=== PATIENT | female | born 1960 | race Asian ===

== ENCOUNTER → 2018-09-15 12:05 | Outpatient (CLI) | payer OTHER, SELFPAY ==
[2018-09-15 14:26] LABS: Add Manual Diff / Slide Review NO; Basophils Percent Auto 0.6 % (0-2); Eosinophils Percent Auto 1.6 % (2-4); Hematocrit 40.6 % (36-46); Hemoglobin 13.6 g/dL (12.0-16.0); Mean Corpuscular HGB Conc 33.4 % (30-36); Mean Corpuscular Hemoglobin 29.9 PG (26-34); Mean Corpuscular Volume 89.5 fL (80-100); Monocytes Percent Auto 6.9 % (3-14); Neutrophils Absolute Auto 4400 /uL (3000-5900); Neutrophils Percent Auto 55.9 % (50-75); Platelet Count 210 X10^3/uL (150-400); Red Blood Cell Count 4.54 X10^6/uL (4.0-5.2); Red Cell Distribution Width 14.3 % (11.6-14.8)
[2018-09-15 14:38] LABS: Alanine Aminotransferase 22 IU/L (9-52); Albumin 4.3 g/dL (3.5-5.0); Albumin Globulin Ratio 1.6 (1.0-2.8); Alkaline Phosphatase 42 U/L (38-126); Aspartate Aminotransferase 17 IU/L (14-36); BUN Creatinine Ratio 18.8 (6-22); Bilirubin Total 0.5 mg/dL (0.2-1.3); Blood Urea Nitrogen 15 mg/dL (7-17); Calcium 9.3 mg/dL (8.4-10.2); Carbon Dioxide 31 mmol/L (22-32); Chloride 103 mmol/L (98-107); Cholesterol 307 mg/dL (140-199); Estimated Glomerular Filt Rate > 60.0 mL/min (>60); Globulin 2.7 g/dL (1.7-4.1); Glucose 80 mg/dL (70-100); HDL Cholesterol 71 mg/dL (40-60); HEMOLYSIS < 15 (0-50); LDL Cholesterol Calculated 216 mg/dL (<100); Potassium 3.2 mmol/L (3.4-5.1); Sodium 143 mmol/L (137-145); Triglycerides 100 mg/dL (35-150)
[2018-09-15 16:10] LABS: Thyroid Stimulating Hormone 1.63 uIU/mL (0.47-4.68)
[2018-09-15 16:27] LABS: Hep C Virus Ab w/Reflex Quant NEGATIVE s/c (NEGATIVE)
== END ==
PROVIDERS: PCP Internal Medicine; Visit Provider Internal Medicine
DX: J32.9 Chronic sinusitis, unspecified (principal); M25.50 Pain in unspecified joint; R51 Headache
CPT/HCPCS: 36415; 80053; 80061; 82274; 84443; 85025; 86803

== ENCOUNTER 2021-11-07 12:53 | Emergency (ER) | payer OTHER, SELFPAY ==
[2021-11-07 12:54] VITALS: BP 132/72; PULSE 106; RESP 15; TEMP 36.1; O2SAT 100; BMI 22.3
--- NOTE | 2021-11-07 12:59 | DI.RAD.S_ITS ---
PROCEDURE: XR CHEST 1V INDICATIONS: chest pain TECHNIQUE: One view of the chest was acquired. COMPARISON: None. FINDINGS: Surgical changes and devices: None. Lungs and pleura: Lungs are clear. No pleural effusions or pneumothorax. Mediastinum: Mediastinal contours appear normal. Heart size is normal. Bones and chest wall: No suspicious bony lesions. Overlying soft tissues appear unremarkable. IMPRESSION: No acute cardiopulmonary abnormality. Dictated by: John Paul Sunshine M.D. on 11/07/2021 at 13:41 Approved by: John Paul Sunshine M.D. on 11/07/2021 at 13:41
[2021-11-07 13:25] VITALS: BP 170/130; PULSE 98; O2SAT 98
--- NOTE | 2021-11-07 13:27 | ED.CHESTPAIN ---
HPI - Chest Pain General Chief Complaint: Chest Pain Stated Complaint: Heart symptoms Time Seen by Provider: 11/07/21 13:09 Source: patient Mode of arrival: Ambulatory Limitations: no limitations History of Present Illness HPI narrative: Patient is a 61-year-old female. Approximately 4 months ago had an episode of ?SVT ?when she was in [facility]. She was seen in the emergency department. She was started on medication. States that for several hours she converted on her own. She was given atenolol instructed to follow-up with cardiology. She has not been able to follow-up with cardiology since that event. She is also off of the atenolol because it was making her very tired. For the past couple days she has had episodes where she was having some left-sided chest discomfort. She also reports some left arm discomfort. No problems breathing. She does not feel like her heart is beating fast right now however over the past couple days she has had episodes where she has felt this. Has not tried anything for her symptoms prior to arrival. Related Data Previous Rx's Medication Instructions Recorded meclizine 25 mg tablet 25 mg PO Q8H PRN #100 tab 03/10/18 amitriptyline 10 mg tablet 0 PO HS #30 tab 03/11/18 ketorolac 10 mg tablet 10 mg PO Q6H PRN #20 tab 03/11/18 epinephrine 0.3 mg/0.3 mL 0.3 mg (0.3 mL) IM ONCE PRN #2 each 05/27/18 injection, auto-injector (EpiPen 2-Lev) lorazepam 0.5 mg tablet 0.5 mg PO Q8H PRN #15 tab 05/27/18 prednisone 20 mg tablet 20 mg PO DAILY PRN #30 tab 09/15/18 montelukast 10 mg tablet 10 mg PO QDAY #30 tab 11/04/18 (Singulair) Allergies Allergy/AdvReac Type Severity Reaction Status Date / Time Sulfa (Sulfonamide Allergy Severe severe Verified 11/07/21 12:56 Antibiotics) immediate [SULFA (SULFONAMIDE hives ANTIBIOTICS)] Review of Systems Constitutional Constitutional: Denies fever(s) and Denies headache(s) ENT Ears, Nose, Mouth, and Throat: Denies headache(s) and Denies sore throat Cardiovascular Cardiovascular: Reports as per HPI and Reports system reviewed and no additional complaints, except as documented Respiratory Respiratory: Reports as per HPI and Reports system reviewed and no additional complaints, except as documented Gastrointestinal Gastrointestinal: Reports system reviewed and no additional complaints, except as documented Genitourinary Genitourinary: Reports system reviewed and no additional complaints, except as documented Integumentary/Breasts Skin/Breast: Reports system reviewed and no additional complaints, except as documented Neurologic Neurologic: Reports system reviewed and no additional complaints, except as documented and Denies headache(s) Hematologic/Lymphatic On Anticoagulants: No Allergic/Immunologic Allergic/Immunologic: Reports system reviewed and no additional complaints, except as documented Patient History Medical History Chronic headaches GERD (gastroesophageal reflux disease) Hayfever (1960) Retinal tear (2014) Vertigo (2014) Surgical History (Updated 05/27/18 @ 11:37 by Iliana Hurtado) Anesthesia History of excision of mass (2010) Family History (Updated 05/27/18 @ 11:40 by Iliana Hurtado) Grandmother PSVT (paroxysmal supraventricular tachycardia) Mother Age: 83 Heart disease PSVT (paroxysmal supraventricular tachycardia) Heart palpitations Sister Age: 62 Hypertension Obesity Brother Prediabetes Father Melanoma Grandfather No problems noted. Grandfather No problems noted. Grandmother No problems noted. Social History Smoking Status: Never smoker alcohol intake: never substance use type: does not use Smoking Status: Never smoker alcohol intake frequency: holidays/special occasions only Substance Use Type: does not use Exam Initial Vital Signs Initial Vital Signs: Vital Signs Temperature 96.9 F L 11/07/21 12:54 Pulse Rate 106 H 11/07/21 12:54 Respiratory Rate 15 11/07/21 12:54 Blood Pressure 132/72 11/07/21 12:54 Pulse Oximetry 100 11/07/21 12:54 Const General: cooperative, comfortable, well developed and well groomed Limitations: mental status not altered HENAZ Head: normal to inspection and normocephalic Chest Chest: No crepitus and No tenderness Resp Effort & Inspection: normal respiratory effort Auscultation: clear to auscultation bilaterally Cardio Rate: regular rate Rhythm: regular rhythm GI Inspection: non-distended Palpation: soft and No tender Back/Spine/Pelvis Back: normal to inspection Skin General: no rashes or lesions noted Neuro General: patient alert, patient awake, patient oriented x3 and moves all extremities Extrem General: capillary refill normal Psych Appearance: grossly normal and well kempt Course Orders Ordered: ED Orders 11/07/21 12:59 XR chest 1V Stat EKG-12 Lead Stat 11/07/21 13:35 Complete Blood Count AUTO DIFF Stat Comprehensive Metabolic Panel Stat Lipase Stat Magnesium Stat Troponin & CK Cardiac Panel Stat Vital Signs Vital signs: Vital Signs - 8 hr 11/07/21 12:54 11/07/21 13:25 11/07/21 13:30 Temperature 96.9 F L Pulse Rate 106 H 98 H 78 Respiratory Rate 15 12 Blood Pressure 132/72 170/130 H 154/85 H Pulse Oximetry 100 98 98 11/07/21 14:00 11/07/21 14:30 Temperature Pulse Rate 71 71 Respiratory Rate 20 17 Blood Pressure 129/81 133/81 Pulse Oximetry 98 98 MDM - Chest Pain Lab Data Attestation: I reviewed the patient's lab results. Result diagrams: 11/07/21 13:35 11/07/21 13:35 Labs: Lab Results 11/07/21 11/07/21 Range/Units 13:35 13:35 WBC 7.5 (4.5-11.0) X10^3/uL RBC 4.63 (4.0-5.2) X10^6/uL Hgb 13.6 (12.0-16.0) g/dL Hct 39.7 (36-46) % MCV 85.8 (80-100) fL MCH 29.3 (26-34) PG MCHC 34.2 (30-36) % RDW 14.1 (11.6-14.8) % Plt Count 243 (150-400) X10^3/uL Neut % (Auto) 72.2 (50-75) % Lymph % (Auto) 20.7 L (25-40) % [place] % (Auto) 4.9 (3-14) % Eos % (Auto) 1.6 L (2-4) % Baso % (Auto) 0.6 (0-2) % Neut # (Auto) 5400 (0253-6982) /uL Lymph # (Auto) 1500 (1248-0822) /uL [place] # (Auto) 400 (0-900) /uL Eos # (Auto) 100 (0-450) /uL Baso # (Auto) 0 (0-100) /uL Sodium 140 (137-145) mmol/L Potassium 3.9 (3.4-5.1) mmol/L Chloride 104 (98-107) mmol/L Carbon Dioxide 26 (22-32) mmol/L BUN 13 (7-17) mg/dL Creatinine 0.73 (0.52-1.04) mg/dL Estimated GFR > 60.0 (>60) mL/min BUN/Creatinine Ratio 17.8 (6-22) Glucose 100 (80-110) mg/dL Calcium 9.7 (8.4-10.2) mg/dL Magnesium 1.9 (1.6-2.3) mg/dL Total Bilirubin 0.5 (0.2-1.3) mg/dL AST 24 (14-36) IU/L ALT 12 (<35) IU/L Alkaline Phosphatase 50 (38-126) U/L Total Creatine Kinase 62 (30-135) U/L CK-MB (CK-2) TNP CK-MB (CK-2) Rel Index TNP Troponin I < 0.012 (0.01-0.034) ng/mL Total Protein 7.7 (6.3-8.2) g/dL Albumin 4.7 (3.5-5.0) g/dL Globulin 3.0 (1.7-4.1) g/dL Albumin/Globulin Ratio 1.6 (1.0-2.8) Lipase 97 (23-300) U/L Imaging Data Chest x-ray: Radiologist's Impression: [address] [address] XRay Report Signed Patient: Delicia Brice V MR#: [id number] : 1960 Acct:[id number] Age/Sex: 61 / F Date of Service: 11/07/21 Loc: ED Accession Number: [id number] ?? Procedure: XR chest 1V Ordering Provider: Oziel Vinson D.O. PROCEDURE:? XR CHEST 1V ? INDICATIONS:? chest pain ? TECHNIQUE:? One view of the chest was acquired.? ? COMPARISON:? None. ? FINDINGS:? ? Surgical changes and devices:? None.? ? Lungs and pleura:? Lungs are clear.? No pleural effusions or pneumothorax.? ? Mediastinum:? Mediastinal contours appear normal.? Heart size is normal.? ? Bones and chest wall:? No suspicious bony lesions.? Overlying soft tissues appear unremarkable.? ? IMPRESSION:? No acute cardiopulmonary abnormality. ? ? Dictated by: John Paul Sunshine M.D. on 11/07/2021 at 13:41 ? ? Approved by: John Paul Sunshine M.D. on 11/07/2021 at 13:41?? ECG Data Attestation: I personally reviewed and interpreted this ECG as follows: Interpretation: Sinus rhythm Ventricular rate 97 Normal axis Normal QRS Normal QTC Nonspecific ST T wave changes MDM Narrative Medical decision making narrative: EKG is unremarkable, chest x-ray is unremarkable, has had no ectopy since arrival here in the emergency department. Troponin is negative. I do have low suspicion for ACS based on her presentation. We did discuss the potential that she could be having episodes of SVT even though we are not picking it up on the monitor or the EKG today. We did discuss the use of a Holter monitor in the fact that she needed to contact her primary doctor to have this done. She was given return precautions and follow-up instructions. She expressed understanding agreement. Discharge Plan Departure Patient Disposition: Home Clinical Impression: Palpitations Instructions: Arrhythmias Activity Restrictions/Additional Instructions: I recommend you continue to take all of your medications as directed. Contact your primary doctor is you will most likely need a Holter monitor for further evaluation. Return to the emergency department for any new or worsening symptoms Prescriptions: No Action meclizine 25 MG tablet 25 mg PO Q8H PRNQty: 100 0RF ketorolac 10 MG tablet 10 mg PO Q6H PRNQty: 20 0RF amitriptyline 10 MG tablet 0 PO HS Qty: 30 1RF lorazepam 0.5 mg tablet 0.5 mg PO Q8H PRN (Reason: fear of flying) Qty: 15 0RF Rx Instructions: Take 1/2-1 prior to flying as needed epinephrine [EpiPen 2-Lev] 0.3 mg/0.3 mL auto-injector 0.3 mg IM ONCE PRN (Reason: anaphylaxis) Qty: 2 0RF prednisone 20 mg tablet 20 mg PO DAILY PRN (Reason: arthralgia) Qty: 30 0RF Rx Instructions: administer with food or milk, do not take with NSAIDS. montelukast [Singulair] 10 mg tablet 10 mg PO QDAY Qty: 30 2RF Referrals: Marisa Payton ARNP [Primary Care Provider] -
[2021-11-07 13:30] VITALS: BP 154/85; PULSE 78; RESP 12; O2SAT 98
[2021-11-07 13:45] LABS: Add Manual Diff / Slide Review NO; Basophils Absolute Auto 0 /uL (0-100); Basophils Percent Auto 0.6 % (0-2); Eosinophils Absolute Auto 100 /uL (0-450); Eosinophils Percent Auto 1.6 % (2-4); Hematocrit 39.7 % (36-46); Hemoglobin 13.6 g/dL (12.0-16.0); Lymphocytes Absolute Auto 1500 /uL (1100-4500); Lymphocytes Percent Auto 20.7 % (25-40); Mean Corpuscular HGB Conc 34.2 % (30-36); Mean Corpuscular Hemoglobin 29.3 PG (26-34); Mean Corpuscular Volume 85.8 fL (80-100); Monocytes Absolute Auto 400 /uL (0-900); Monocytes Percent Auto 4.9 % (3-14); Neutrophils Absolute Auto 5400 /uL (1500-7000); Neutrophils Percent Auto 72.2 % (50-75); Platelet Count 243 X10^3/uL (150-400); Red Blood Cell Count 4.63 X10^6/uL (4.0-5.2); Red Cell Distribution Width 14.1 % (11.6-14.8); White Blood Cell Count 7.5 X10^3/uL (4.5-11.0)
[2021-11-07 13:57] LABS: Alanine Aminotransferase 12 IU/L (<35); Albumin 4.7 g/dL (3.5-5.0); Albumin Globulin Ratio 1.6 (1.0-2.8); Alkaline Phosphatase 50 U/L (38-126); Aspartate Aminotransferase 24 IU/L (14-36); BUN Creatinine Ratio 17.8 (6-22); Bilirubin Total 0.5 mg/dL (0.2-1.3); Blood Urea Nitrogen 13 mg/dL (7-17); Calcium 9.7 mg/dL (8.4-10.2); Carbon Dioxide 26 mmol/L (22-32); Chloride 104 mmol/L (98-107); Creatine Kinase 62 U/L (30-135); Estimated Glomerular Filt Rate > 60.0 mL/min (>60); Glucose 100 mg/dL (80-110); HEMOLYSIS 19 (0-50); Lipase 97 U/L (23-300); Magnesium 1.9 mg/dL (1.6-2.3); Potassium 3.9 mmol/L (3.4-5.1); Sodium 140 mmol/L (137-145); Total Protein 7.7 g/dL (6.3-8.2)
[2021-11-07 14:00] VITALS: BP 129/81; PULSE 71; RESP 20; O2SAT 98
[2021-11-07 14:08] LABS: Troponin I < 0.012 ng/mL (0.01-0.034)
[2021-11-07 14:30] VITALS: BP 133/81; PULSE 71; RESP 17; O2SAT 98
== END 2021-11-07 14:48 | disposition home or self-care (01) ==
PROVIDERS: Emergency Provider Emergency Medicine; PCP Internal Medicine
DX: R00.2 Palpitations (principal)
CPT/HCPCS: 36415; 71045; 80053; 82550; 83690; 83735; 84484; 85025; 93005; 93010; 99284

== ENCOUNTER → 2022-01-19 13:55 | Outpatient (CLI) | payer OTHER, SELFPAY ==
--- NOTE | 2022-01-19 | DI.MRI.S_ITS ---
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 Dynamic axial VIBE during the administration of contrast; post-contrast coronal VIBE or 2D FLASH with fat saturation from the hepatic dome to the iliac crests. Optional diffusion weighted imaging and ADC may be performed. 20 cc ProHance IV contrast. COMPARISON: None. FINDINGS: Image quality: Excellent. Lung bases: No basal pleural effusions. Heart size is normal. Solid organs: Liver is normal in size and enhancement. A few T2 hyperintense liver cysts. Medial right lobe of the liver lesion measuring 1.7 cm, (5/13), peripheral nodular discontinuous enhancement consistent with a benign hemangioma. Gallbladder is unremarkable. No gallstones seen. There is focal dilatation of the distal CBD measuring 0.9 cm, (3/10). No intrahepatic biliary ductal dilatation. Pancreas is normal in morphology. Spleen is normal in size and enhancement. No adrenal nodules. Both kidneys demonstrate normal size and enhancement, without hydronephrosis. Nodes and vessels: No retroperitoneal or mesenteric adenopathy by size criteria. Aorta and inferior vena cava are normal in size. Bowel and peritoneum: Unenhanced bowel loops are normal in caliber. No free fluid. Bones and soft tissues: No ventral hernias. Bone marrow is normal in overall signal. Sacral Tarlov cysts. IMPRESSION: 1. Focal dilatation of the distal CBD measuring 0.9 cm. 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 2. No intrahepatic biliary ductal dilatation. No pancreatic ductal dilatation. 3. No gallstones seen. 4. Small benign hemangioma in the right lobe of the liver. A few benign cysts. 5. Sacral Tarlov cysts. Dictated by: Ankit Juarez M.D. on 01/19/2022 at 17:15 Approved by: Ankit Juarez M.D. on 01/19/2022 at 17:21
== END ==
PROVIDERS: PCP Internal Medicine; Referring Provider Internal Medicine; Visit Provider Internal Medicine
DX: D18.03 Hemangioma of intra-abdominal structures (principal); Q44.5 Other congenital malformations of bile ducts; G96.191 Perineural cyst; K76.89 Other specified diseases of liver
CPT/HCPCS: 74183; A9579

== ENCOUNTER → 2022-01-24 11:21 | Outpatient (CLI) | payer OTHER, SELFPAY ==
[2022-01-24 13:55] LABS: COVID19 -Nasal RAPID Negative (Negative)
== END ==
PROVIDERS: PCP Internal Medicine; Visit Provider Family Medicine Sleep Medicine
DX: Z20.822 Contact with and (suspected) exposure to COVID-19 (principal)
CPT/HCPCS: 87635; C9803

== ENCOUNTER → 2022-01-25 15:02 | Outpatient (CLI) | payer OTHER, SELFPAY ==
--- NOTE | 2022-01-25 15:05 | DI.NM.S_ITS ---
PROCEDURE: NM EXERCISE TREADMILL NON NUC COMPARISON: None. INDICATIONS: Atypical chest pain FINDINGS: The patient exercised for 5 minutes and 38 seconds reaching 124% of maximum predicted heart rate. Appropriate BP response to exercise. Resting rhythm was sinus rhythm and it went into SVT with HR of 199bpm at peak exercise that converted to sinus before the 1 minute soco in recovery. Mild horizontal ST depressions during 3 minute soco of recovery. Patient felt palpitations with SVT. No angina during the study. IMPRESSION: Abnormal treadmill ECG only stress test due to diagnostic ST changes during recovery and SVT at peak exercise. Palpitations correlated with SVT. No angina during the study. Appropriate BP response to exercise. Recommend treadmill stress echo for further ischemia evaluation and EP consult to consider ablation for the SVT. Dictated by: Jeremiah Mendez MD on 01/25/2022 at 17:03 Approved by: Jeremiah Mendez MD on 01/25/2022 at 17:11
== END ==
PROVIDERS: PCP Internal Medicine; Referring Provider Internal Medicine Cardiovascular Disease; Visit Provider Internal Medicine Cardiovascular Disease
DX: R07.89 Other chest pain (principal); R94.31 Abnormal electrocardiogram [ECG] [EKG]
CPT/HCPCS: 93016; 93017; 93018

== ENCOUNTER 2022-05-04 11:04 | Emergency (ER) | payer OTHER, SELFPAY ==
[2022-05-04] VITALS (7 sets, daily range): BP systolic 140–173; BP diastolic 66–84; PULSE 67–89; RESP 15–24; TEMP 36.8; O2SAT 98–99; BMI 22.6
--- NOTE | 2022-05-04 11:18 | DI.RAD.S_ITS ---
PROCEDURE: XR CHEST 1V INDICATIONS: chest pain TECHNIQUE: One view of the chest was acquired. COMPARISON: [facility], CR, XR CHEST 1V, 11/07/2021, 13:09. FINDINGS: Surgical changes and devices: None. Lungs and pleura: Masslike opacity in the right lung apex. No pleural effusions or pneumothorax. Mediastinum: Mediastinal contours appear normal. Heart size is normal. Bones and chest wall: No suspicious bony lesions. Overlying soft tissues appear unremarkable. IMPRESSION: Masslike opacity in the right lung apex concerning for pneumonia, however underlying neoplastic process is not excluded by this study. Recommend follow-up chest x-ray in 30 days following appropriate therapy for pneumonia to ensure resolution of the finding and to exclude malignancy. Dictated by: Jennifer Isabel MD, PhD on 05/04/2022 at 11:41 Approved by: Jennifer Isabel MD, PhD on 05/04/2022 at 11:42
[2022-05-04 11:43] LABS: Add Manual Diff / Slide Review NO; Basophils Absolute Auto 0 /uL (0-100); Basophils Percent Auto 0.7 % (0-2); Eosinophils Absolute Auto 200 /uL (0-450); Eosinophils Percent Auto 3.4 % (2-4); Hematocrit 40.2 % (36-46); Hemoglobin 13.3 g/dL (12.0-16.0); Lymphocytes Absolute Auto 2300 /uL (1100-4500); Lymphocytes Percent Auto 38.9 % (25-40); Mean Corpuscular HGB Conc 33.1 % (30-36); Mean Corpuscular Hemoglobin 28.5 PG (26-34); Mean Corpuscular Volume 86.2 fL (80-100); Monocytes Absolute Auto 300 /uL (0-900); Monocytes Percent Auto 4.8 % (3-14); Neutrophils Absolute Auto 3100 /uL (1500-7000); Neutrophils Percent Auto 52.2 % (50-75); Platelet Count 227 X10^3/uL (150-400); Red Blood Cell Count 4.66 X10^6/uL (4.0-5.2); Red Cell Distribution Width 14.2 % (11.6-14.8); White Blood Cell Count 5.9 X10^3/uL (4.5-11.0)
[2022-05-04 11:46] LABS: PTT Partial Thromboplastin Tim 36 SECONDS (26.4-36.2)
[2022-05-04 11:48] LABS: Alanine Aminotransferase 11 IU/L (<35); Albumin 4.7 g/dL (3.5-5.0); Albumin Globulin Ratio 1.5 (1.0-2.8); Alkaline Phosphatase 54 U/L (38-126); Aspartate Aminotransferase 22 IU/L (14-36); BUN Creatinine Ratio 12.5 (6-22); Bilirubin Total 0.6 mg/dL (0.2-1.3); Blood Urea Nitrogen 10 mg/dL (7-17); Calcium 9.5 mg/dL (8.4-10.2); Carbon Dioxide 27 mmol/L (22-32); Chloride 106 mmol/L (98-107); Creatine Kinase 52 U/L (30-135); Estimated Glomerular Filt Rate > 60 mL/min (>60); Globulin 3.1 g/dL (1.7-4.1); Glucose 106 mg/dL (80-110); HEMOLYSIS < 15 (0-50); Lipase 87 U/L (23-300); Potassium 3.6 mmol/L (3.4-5.1); Sodium 137 mmol/L (137-145); Total Protein 7.8 g/dL (6.3-8.2)
[2022-05-04 11:59] LABS: Troponin I < 0.012 ng/mL (0.01-0.034)
--- NOTE | 2022-05-04 15:24 | ED_ITS ---
HPI - Chest Pain General Chief Complaint: Chest Pain Stated Complaint: HR is extremely fast, bp 140/105 Time Seen by Provider: 05/04/22 14:20 Source: patient Mode of arrival: Ambulatory Limitations: no limitations History of Present Illness HPI narrative: Patient is a jesus 62-year-old female with a history SVT, she takes atenolol but it is not actually working for her so she is no longer taking it presenting today with heart palpitations and discomfort. She said she had some discomfort last night she thought maybe she was in SVT but did not feel like her previous episodes. Did not keep her awake she was able to fall asleep. However this morning she again had some discomfort off and pain in her chest hunching over. She thought her heart rate was fast however her heart rate is normal here she is in normal sinus rhythm. She overall is feeling better after waiting in the emergency department for numerous hours. She denies any shortness of breath with exertion she is no longer having pain or discomfort. She has not had any fever chills. She denies any cough. No lower extremity swelling. She has not had any recent travel. No hemoptysis. Related Data Previous Rx's Medication Instructions Recorded meclizine 25 mg tablet 25 mg PO Q8H PRN #100 tabs 03/10/18 amitriptyline 10 mg tablet 0 PO HS #30 tabs 03/11/18 ketorolac 10 mg tablet 10 mg PO Q6H PRN #20 tabs 03/11/18 epinephrine 0.3 mg/0.3 mL 0.3 mg (0.3 mL) IM ONCE PRN 05/27/18 injection, auto-injector (EpiPen anaphylaxis #2 ea 2-Lev) lorazepam 0.5 mg tablet 0.5 mg PO Q8H PRN fear of flying 05/27/18 #15 tabs prednisone 20 mg tablet 20 mg PO DAILY PRN arthralgia #30 09/15/18 tabs montelukast 10 mg tablet 10 mg PO QDAY #30 tabs 11/04/18 (Singulair) Allergies Allergy/AdvReac Type Severity Reaction Status Date / Time Sulfa (Sulfonamide Allergy Severe severe Verified 05/04/22 11:16 Antibiotics) immediate [SULFA (SULFONAMIDE hives ANTIBIOTICS)] Review of Systems Review of Systems Narrative: GENERAL: Denies chills, fatigue, malaise, fever, sweats, travel HEENT: Denies sinus pain, ear pain, sore throat, difficulty swallowing, neck pain RESPIRATORY: Denies dyspnea, cough, wheezing, hemoptysis, sputum. CARDIOVASCULAR: See HPI GASTROINTESTINAL: Denies nausea, vomiting, abdominal pain, diarrhea, constipation, melena. : Denies dysuria, frequency, incontinence, hematuria, urinary retention, flank pain. MUSCULOSKELETAL: Denies weakness, joint pain, or bony pain SKIN: No rash, no erythema, no pruritus NEUROLOGIC: Denies weakness, dizziness, headache, numbness, change in speech, confusion PSYCHIATRIC: No concerning psychosocial issues. 12 point review of systems is negative except for those stated above and HPI Patient History Medical History Chronic headaches GERD (gastroesophageal reflux disease) Hayfever (196) Retinal tear (2014) Vertigo (2014) Surgical History Anesthesia History of excision of mass (2010) Family History Grandmother PSVT (paroxysmal supraventricular tachycardia) Mother Age: 83 Heart disease PSVT (paroxysmal supraventricular tachycardia) Heart palpitations Sister Age: 62 Hypertension Obesity Brother Prediabetes Father Melanoma Grandfather No problems noted. Grandfather No problems noted. Grandmother No problems noted. Social History Smoking Status: Never smoker alcohol intake: never substance use type: does not use Smoking Status: Never smoker alcohol intake frequency: holidays/special occasions only Substance Use Type: does not use Exam Initial Vital Signs Initial Vital Signs: Vital Signs Temperature 98.3 F 05/04/22 11:16 Pulse Rate 88 05/04/22 11:16 Respiratory Rate 15 05/04/22 11:16 Blood Pressure 144/80 H 05/04/22 11:16 Pulse Oximetry 99 05/04/22 11:16 Oxygen Delivery Method 05/04/22 11:16 GENERAL: Alert pleasant well-appearing 62-year-old female and in no acute distress. HEENT: Head atraumatic,EOMI, pupils reactive, face symmetric, moist mucous membranes CARDIOVASCULAR: Regular rate and rhythm without murmurs, rubs or gallops. RESPIRATORY: Breath sounds equal bilaterally, no wheezes rales or rhonchi. ABDOMEN: Soft, nontender. Normoactive bowel sounds all 4 quadrants. No guarding or rebound. EXTREMITIES: Normal range of motion, no clubbing or edema. Neurovascularly intact NEUROLOGICAL: Alert and oriented x4.Normal gait and speech. SKIN: Warm, dry, no laceration, no petechiae, no rashes or lesions. Course Orders Ordered: ED Orders 05/04/22 11:18 XR chest 1V Stat EKG-12 Lead Stat 05/04/22 11:25 Complete Blood Count AUTO DIFF Stat Comprehensive Metabolic Panel Stat Lipase Stat Magnesium Stat Partial Thromboplastin Time Stat Prothrombin Time INR Stat Troponin & CK Cardiac Panel Stat Vital Signs Vital signs: Vital Signs - 8 hr 05/04/22 11:16 05/04/22 13:49 05/04/22 13:50 Temperature 98.3 F Pulse Rate 88 78 68 Respiratory Rate 15 17 Blood Pressure 144/80 H Pulse Oximetry 99 98 Oxygen Delivery Method Room Air 05/04/22 13:50 05/04/22 14:00 05/04/22 14:00 Temperature Pulse Rate 80 Respiratory Rate 20 Blood Pressure 173/84 H 155/72 H Pulse Oximetry 99 Oxygen Delivery Method 05/04/22 14:30 05/04/22 14:30 05/04/22 15:00 Temperature Pulse Rate 69 Respiratory Rate Blood Pressure 140/67 141/66 H Pulse Oximetry 99 Oxygen Delivery Method 05/04/22 15:00 05/04/22 15:30 05/04/22 15:30 Temperature Pulse Rate 67 89 Respiratory Rate 24 Blood Pressure 160/71 H Pulse Oximetry 99 98 Oxygen Delivery Method MDM - Chest Pain Lab Data Result diagrams: 05/04/22 11:25 05/04/22 11:25 Labs: Lab Results 05/04/22 05/04/22 05/04/22 Range/Units 11:25 11:25 11:25 WBC 5.9 (4.5-11.0) X10^3/uL RBC 4.66 (4.0-5.2) X10^6/uL Hgb 13.3 (12.0-16.0) g/dL Hct 40.2 (36-46) % MCV 86.2 (80-100) fL MCH 28.5 (26-34) PG MCHC 33.1 (30-36) % RDW 14.2 (11.6-14.8) % Plt Count 227 (150-400) X10^3/uL Neut % (Auto) 52.2 (50-75) % Lymph % (Auto) 38.9 (25-40) % [place] % (Auto) 4.8 (3-14) % Eos % (Auto) 3.4 (2-4) % Baso % (Auto) 0.7 (0-2) % Neut # (Auto) 3100 (1737-3008) /uL Lymph # (Auto) 2300 (8783-5274) /uL [place] # (Auto) 300 (0-900) /uL Eos # (Auto) 200 (0-450) /uL Baso # (Auto) 0 (0-100) /uL PT 11.0 (10.1-12.7) SECONDS INR 1.0 (0.9-1.3) APTT 36 (26.4-36.2) SECONDS Sodium 137 (137-145) mmol/L Potassium 3.6 (3.4-5.1) mmol/L Chloride 106 (98-107) mmol/L Carbon Dioxide 27 (22-32) mmol/L BUN 10 (7-17) mg/dL Creatinine 0.80 (0.52-1.04) mg/dL Estimated GFR > 60 (>60) mL/min BUN/Creatinine Ratio 12.5 (6-22) Glucose 106 (80-110) mg/dL Calcium 9.5 (8.4-10.2) mg/dL Magnesium 2.0 (1.6-2.3) mg/dL Total Bilirubin 0.6 (0.2-1.3) mg/dL AST 22 (14-36) IU/L ALT 11 (<35) IU/L Alkaline Phosphatase 54 (38-126) U/L Total Creatine Kinase 52 (30-135) U/L CK-MB (CK-2) TNP CK-MB (CK-2) Rel Index TNP Troponin I < 0.012 (0.01-0.034) ng/mL Total Protein 7.8 (6.3-8.2) g/dL Albumin 4.7 (3.5-5.0) g/dL Globulin 3.1 (1.7-4.1) g/dL Albumin/Globulin Ratio 1.5 (1.0-2.8) Lipase 87 (23-300) U/L Imaging Data Chest x-ray: Radiologist's Impression: [address] [address] XRay Report Signed Patient: Delicia Bautista V MR#: [id number] : 1960 Acct:[id number] Age/Sex: 62 / F Date of Service: 05/04/22 Loc: ED Accession Number: [id number] ?? Procedure: XR chest 1V Ordering Provider: Mis Acosta D.O. PROCEDURE:? XR CHEST 1V ? INDICATIONS:? chest pain ? TECHNIQUE:? One view of the chest was acquired.? ? COMPARISON:? [facility], CR, XR CHEST 1V, 11/07/2021, 13:09. ? FINDINGS:? ? Surgical changes and devices:? None.? ? Lungs and pleura:? Masslike opacity in the right lung apex.? No pleural effusions or pneumothorax.? ? Mediastinum:? Mediastinal contours appear normal.? Heart size is normal.? ? Bones and chest wall:? No suspicious bony lesions.? Overlying soft tissues appear unremarkable.? ? IMPRESSION:? Masslike opacity in the right lung apex concerning for pneumonia, however underlying neoplastic process is not excluded by this study.? Recommend follow- up chest x-ray in 30 days following appropriate therapy for pneumonia to ensure resolution of the finding and to exclude malignancy. ? ? Dictated by: Jennifer Isabel MD, PhD on 05/04/2022 at 11:41 ? ? ECG Data Interpretation: Normal sinus rhythm rate 79 ID interval 182 QRS [address] changes T-wave inversion in lead 3 similar to previous EKG MDM Narrative Medical decision making narrative: Patient is not in SVT here in the emergency department. She has a normal EKG which is similar and negative troponin. Symptoms sound suspicious for an a right knee up. Do not suspect pulmonary embolism. She overall is feeling significantly better. 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 Discharge Plan Departure Patient Disposition: Home Clinical Impression: Heart palpitations Instructions: Arrhythmias Activity Restrictions/Additional Instructions: *You have been diagnosed with palpitations *What to do: At this time you may go home. However please return immediately if you are having symptoms at any time. Please follow-up with primary care provider and Cardiology. *Continue to take medications as directed *Follow up with your primary care provider in 2-3 days or call [phone] *Return to ER if you should have increased palpitation chest pain shortness of breath or any new, worsening or concerning symptoms Prescriptions: No Action meclizine 25 MG tablet 25 mg PO Q8H PRNQty: 100 0RF ketorolac 10 MG tablet 10 mg PO Q6H PRNQty: 20 0RF amitriptyline 10 MG tablet 0 PO HS Qty: 30 1RF lorazepam 0.5 mg tablet 0.5 mg PO Q8H PRN (Reason: fear of flying) Qty: 15 0RF Rx Instructions: Take 1/2-1 prior to flying as needed epinephrine [EpiPen 2-Lev] 0.3 mg/0.3 mL auto-injector 0.3 mg IM ONCE PRN (Reason: anaphylaxis) Qty: 2 0RF prednisone 20 mg tablet 20 mg PO DAILY PRN (Reason: arthralgia) Qty: 30 0RF Rx Instructions: administer with food or milk, do not take with NSAIDS. montelukast [Singulair] 10 mg tablet 10 mg PO QDAY Qty: 30 2RF Referrals: Marisa Payton ARNP [Primary Care Provider] - Visit Report Forms: Patient Portal/API
== END 2022-05-04 16:01 | disposition home or self-care (01) ==
PROVIDERS: Emergency Provider Emergency Medicine; PCP Internal Medicine
DX: R00.2 Palpitations (principal); R07.9 Chest pain, unspecified
CPT/HCPCS: 36415; 71045; 80053; 82550; 83690; 83735; 84484; 85025; 85610; 85730; 93005; 93010; 99283

== ENCOUNTER → 2022-06-04 12:59 | Outpatient (CLI) | payer OTHER, SELFPAY ==
--- NOTE | 2022-06-04 13:02 | DI.RAD.S_ITS ---
PROCEDURE: XR CHEST 2V INDICATIONS: PNEUMONIA TECHNIQUE: 2 views of the chest were acquired. COMPARISON: [facility], CR, XR CHEST 1V, 11/07/2021, 13:09. [facility], CR, XR CHEST 1V, 05/04/2022, 11:18. FINDINGS: Surgical changes and devices: None. Lungs and pleura: Lungs are clear. No pleural effusions or pneumothorax. Previously seen mass-like opacity in the right lung apex is not visualized on today's exam. Slightly outside and lateral to the right apex is a small area of soft tissue opacification which may represent hair artifact outside the patient's body versus soft tissue density. Recommend correlation with examination. Stable mild right apical pleural thickening. Mediastinum: Mediastinal contours are normal. Heart size is normal. Bones and chest wall: No suspicious bony abnormalities. Soft tissues appear unremarkable. IMPRESSION: Previously described right apical consolidation has resolved. Lateral and outside to the lung on the right, there is a soft tissue opacity which may represent artifact outside the patient's body versus possible soft tissue density. Recommend clinical correlation. Dictated by: Dong Liriano M.D. on 06/04/2022 at 14:35 Approved by: Dong Liriano M.D. on 06/04/2022 at 14:38
== END ==
PROVIDERS: PCP Internal Medicine; Referring Provider Internal Medicine; Visit Provider Internal Medicine
DX: J18.9 Pneumonia, unspecified organism (principal)
CPT/HCPCS: 71046

== ENCOUNTER 2022-08-20 15:13 | Emergency (ER) | payer OTHER, SELFPAY ==
[2022-08-20 15:31] VITALS: BP 148/65; PULSE 80; RESP 18; TEMP 36.9; O2SAT 97; BMI 21.4
--- NOTE | 2022-08-20 15:53 | DI.RAD.S_ITS ---
PROCEDURE: XR CHEST 2V INDICATIONS: shortness of breath TECHNIQUE: 2 views of the chest were acquired. COMPARISON: [facility], CR, XR CHEST 2V, 06/04/2022, 12:53. FINDINGS: Surgical changes and devices: None. Lungs and pleura: Lungs are clear. No pleural effusions or pneumothorax. Mediastinum: Mediastinal contours are normal. Heart size is normal. Bones and chest wall: No suspicious bony abnormalities. Soft tissues appear unremarkable. IMPRESSION: No acute cardiopulmonary findings. Dictated by: Meme Rai M.D. on 08/20/2022 at 16:33 Approved by: Meme Rai M.D. on 08/20/2022 at 16:33
[2022-08-20 16:09] LABS: Add Manual Diff / Slide Review NO; Basophils Absolute Auto 100 /uL (0-100); Basophils Percent Auto 0.8 % (0-2); Eosinophils Absolute Auto 100 /uL (0-450); Eosinophils Percent Auto 2.2 % (2-4); Hemoglobin 12.1 g/dL (12.0-16.0); Lymphocytes Absolute Auto 1700 /uL (1100-4500); Lymphocytes Percent Auto 27.4 % (25-40); Mean Corpuscular HGB Conc 33.7 % (30-36); Mean Corpuscular Hemoglobin 28.9 PG (26-34); Mean Corpuscular Volume 85.9 fL (80-100); Monocytes Absolute Auto 400 /uL (0-900); Monocytes Percent Auto 6.7 % (3-14); Neutrophils Absolute Auto 4000 /uL (1500-7000); Neutrophils Percent Auto 62.9 % (50-75); Platelet Count 208 X10^3/uL (150-400); Red Blood Cell Count 4.19 X10^6/uL (4.0-5.2); Red Cell Distribution Width 14.5 % (11.6-14.8); White Blood Cell Count 6.3 X10^3/uL (4.5-11.0)
[2022-08-20 16:21] LABS: Creatine Kinase 173 U/L (30-135)
[2022-08-20 16:22] LABS: Alanine Aminotransferase 14 IU/L (<35); Albumin 4.3 g/dL (3.5-5.0); Albumin Globulin Ratio 1.4 (1.0-2.8); Alkaline Phosphatase 52 U/L (38-126); Aspartate Aminotransferase 23 IU/L (14-36); BUN Creatinine Ratio 18.8 (6-22); Bilirubin Total 0.5 mg/dL (0.2-1.3); Blood Urea Nitrogen 13 mg/dL (7-17); Calcium 9.3 mg/dL (8.4-10.2); Carbon Dioxide 23 mmol/L (22-32); Chloride 106 mmol/L (98-107); Estimated Glomerular Filt Rate > 60 mL/min (>60); Globulin 3.1 g/dL (1.7-4.1); Glucose 90 mg/dL (80-110); HEMOLYSIS < 15 (0-50); Potassium 3.6 mmol/L (3.4-5.1); Sodium 138 mmol/L (137-145); Total Protein 7.4 g/dL (6.3-8.2)
[2022-08-20 16:33] LABS: Troponin I < 0.012 ng/mL (0.01-0.034)
[2022-08-20 16:37] LABS: CKMB % Relative Index 0.7 % (1.5-5.0); Creatine Kinase MB 1.24 ng/mL (<2.37)
[2022-08-20 17:48] VITALS: BP 159/73
[2022-08-20 17:49] VITALS: PULSE 69; RESP 15
[2022-08-20 18:00] VITALS: BP 144/69; PULSE 69; RESP 17
[2022-08-20 18:12] LABS: NT-proBNP (BNP-Adult 18+) 118 pg/mL (<125)
--- NOTE | 2022-08-20 18:27 | ED.SOB ---
HPI - SOB/Dyspnea <Venancio Buckley PA-C - Last Filed: 08/20/22 19:23> General Chief Complaint: Shortness of Breath/Dyspnea Stated Complaint: SOB Palpitations Time Seen by Provider: 08/20/22 18:01 Source: patient Mode of arrival: Ambulatory Limitations: no limitations History of Present Illness HPI Narrative: 62-year-old female with past medical history SVT, history of allergic reactions, migraines presents to the ED with 2 days of substernal chest discomfort, shortness of breath. Patient states she had similar symptoms when she had walking pneumonia a few months ago. Patient denies fever, chills, cough, rhinorrhea, sore throat, nausea, vomiting, abdominal pain, dysuria, lightheadedness, dizziness, syncope. Patient states that her symptoms are worse with exertion. Patient describes the chest discomfort as burning, like she swallowed menthol. Related Data Previous Rx's Medication Instructions Recorded meclizine 25 mg tablet 25 mg PO Q8H PRN #100 tabs 03/10/18 amitriptyline 10 mg tablet 0 PO HS #30 tabs 03/11/18 ketorolac 10 mg tablet 10 mg PO Q6H PRN #20 tabs 03/11/18 epinephrine 0.3 mg/0.3 mL 0.3 mg (0.3 mL) IM ONCE PRN 05/27/18 injection, auto-injector (EpiPen anaphylaxis #2 ea 2-Lev) lorazepam 0.5 mg tablet 0.5 mg PO Q8H PRN fear of flying 05/27/18 #15 tabs prednisone 20 mg tablet 20 mg PO DAILY PRN arthralgia #30 09/15/18 tabs montelukast 10 mg tablet 10 mg PO QDAY #30 tabs 11/04/18 (Singulair) Allergies Allergy/AdvReac Type Severity Reaction Status Date / Time Sulfa (Sulfonamide Allergy Severe severe Verified 08/20/22 15:46 Antibiotics) immediate [SULFA (SULFONAMIDE hives ANTIBIOTICS)] Review of Systems <Venancio Buckley PA-C - Last Filed: 08/20/22 19:23> Review of Systems ROS Unobtainable: All systems reviewed & are unremarkable except as noted in HPI and below Constitutional Constitutional: Denies chills, Denies fatigue, Denies fever(s), Denies frequent falls, Denies lethargy and Denies weakness Eyes Eyes: Denies change in vision, Denies eye discharge, Denies irritation and Denies loss of vision ENT Ears, Nose, Mouth, and Throat: Denies change in voice, Denies dizziness, Denies neck pain, Denies sore throat and Denies throat swelling Cardiovascular Cardiovascular: Reports chest pain, Denies irregular heart rhythm, Denies lightheadedness, Denies palpitations, Reports dyspnea, Denies dyspnea on exertion and Denies orthopnea Respiratory Respiratory: Denies cough, Reports dyspnea, Denies dyspnea on exertion and Denies wheezing Gastrointestinal Gastrointestinal: Denies abdominal pain, Denies change in bowel habits, Denies diarrhea, Denies nausea and Denies vomiting Genitourinary Genitourinary: Denies hematuria, Denies flank pain, Denies urinary incontinence and Denies urinary urgency Musculoskeletal Musculoskeletal: Denies back pain, Denies muscle weakness, Denies neck pain, Denies numbness and Denies tingling Integumentary/Breasts Skin/Breast: Denies pruritus, Denies erythema, Denies rash and Denies wounds Neurologic Neurologic: Denies behavioral changes, Denies confusion, Denies dizziness, Denies frequent falls, Denies loss of vision, Denies numbness, Denies tingling and Denies weakness Psychiatric Psychiatric: Denies anxiety, Denies behavioral changes, Denies confusion, Denies depression, Denies homicidal ideation and Denies suicidal ideation Endocrine Endocrine: Denies fatigue, Denies flushing and Denies palpitations Hematologic/Lymphatic Hematologic/Lymphatic: Denies easy bruising Allergic/Immunologic Allergic/Immunologic: Denies urticaria, Denies throat swelling and Denies wheezing Patient History <Venancio Buckley PA-C - Last Filed: 08/20/22 19:23> Medical History Chronic headaches GERD (gastroesophageal reflux disease) Hayfever (196) Retinal tear (2014) Vertigo (2014) Surgical History Anesthesia History of excision of mass (2010) Family History Grandmother PSVT (paroxysmal supraventricular tachycardia) Mother Age: 84 Heart disease PSVT (paroxysmal supraventricular tachycardia) Heart palpitations Sister Age: 63 Hypertension Obesity Brother Prediabetes Father Melanoma Grandfather No problems noted. Grandfather No problems noted. Grandmother No problems noted. Social History Smoking Status: Never smoker alcohol intake: never substance use type: does not use Smoking Status: Never smoker alcohol intake frequency: holidays/special occasions only Substance Use Type: does not use Exam <Venancio Buckley PA-C - Last Filed: 08/20/22 19:23> Narrative Exam Narrative: Const General:?cooperative, healthy appearing and comfortable HENSC Head:?normal to inspection Ears:?hearing grossly normal bilaterally Nose:?external nose normal Face and sinus:?normal facial exam and sinuses nontender Mouth:?oral mucosae normal Throat:?posterior oropharynx normal Eyes General:?appearance normal, both eyes and all related structures Neck Neck:?normal visual inspection and no lymphadenopathy noted Resp Effort & Inspection:?normal respiratory effort Auscultation:?clear to auscultation bilaterally Cardio Rate:?regular rate Rhythm:?regular rhythm GI Mild discomfort with palpation in the epigastric region. No CVA tenderness. Abdomen is soft, nondistended. Neuro General:?patient alert, patient awake and patient oriented x3 Initial Vital Signs Initial Vital Signs: Vital Signs Temperature 98.5 F 08/20/22 15:31 Pulse Rate 80 08/20/22 15:31 Respiratory Rate 18 08/20/22 15:31 Blood Pressure 148/65 H 08/20/22 15:31 Pulse Oximetry 97 08/20/22 15:31 Oxygen Delivery Method 08/20/22 15:31 <Mis Acosta DO - Last Filed: 08/21/22 10:32> Initial Vital Signs Initial Vital Signs: Vital Signs Temperature 98.5 F 08/20/22 15:31 Pulse Rate 80 08/20/22 15:31 Respiratory Rate 18 08/20/22 15:31 Blood Pressure 148/65 H 08/20/22 15:31 Pulse Oximetry 97 08/20/22 15:31 Oxygen Delivery Method 08/20/22 15:31 Course <Venancio Buckley PA-C - Last Filed: 08/20/22 19:23> Orders Ordered: Discontinued Medications Al Hydrox/Mg Hydrox/Simethicone 20 ml/ Lidocaine HCl 15 ml 0 ml PO NOW ONE Stop: 08/20/22 18:27 Last Admin: 08/20/22 19:00 Dose: 17.5 ml Documented By: DEAN Famotidine (Famotidine 20 Mg/2 Ml Vial) 20 mg IV NOW [facility] Last Admin: 08/20/22 19:01 Dose: 10 mg Documented By: DEAN Vital Signs Vital signs: Vital Signs - 8 hr 08/20/22 15:31 Temperature 98.5 F Pulse Rate 80 Respiratory Rate 18 Blood Pressure 148/65 H Pulse Oximetry 97 Oxygen Delivery Method Room Air <Mis Acosta DO - Last Filed: 08/21/22 10:32> Orders Ordered: Discontinued Medications Al Hydrox/Mg Hydrox/Simethicone 20 ml/ Lidocaine HCl 15 ml 0 ml PO NOW ONE Stop: 08/20/22 18:27 Last Admin: 08/20/22 19:00 Dose: 17.5 ml Documented By: DEAN Famotidine (Famotidine 20 Mg/2 Ml Vial) 20 mg IV NOW [facility] Last Admin: 08/20/22 19:01 Dose: 10 mg Documented By: DEAN Vital Signs Vital signs: Vital Signs - 8 hr 08/20/22 15:31 Temperature 98.5 F Pulse Rate 80 Respiratory Rate 18 Blood Pressure 148/65 H Pulse Oximetry 97 Oxygen Delivery Method Room Air MDM - SOB/Dyspnea <Venancio Buckley PA-C - Last Filed: 08/20/22 19:23> Lab Data Result diagrams: 08/20/22 15:50 08/20/22 15:50 Labs: Lab Results 08/20/22 08/20/22 08/20/22 Range/Units 15:50 15:50 15:50 WBC 6.3 (4.5-11.0) X10^3/uL RBC 4.19 (4.0-5.2) X10^6/uL Hgb 12.1 (12.0-16.0) g/dL Hct 36.0 (36-46) % MCV 85.9 (80-100) fL MCH 28.9 (26-34) PG MCHC 33.7 (30-36) % RDW 14.5 (11.6-14.8) % Plt Count 208 (150-400) X10^3/uL Neut % (Auto) 62.9 (50-75) % Lymph % (Auto) 27.4 (25-40) % [place] % (Auto) 6.7 (3-14) % Eos % (Auto) 2.2 (2-4) % Baso % (Auto) 0.8 (0-2) % Neut # (Auto) 4000 (2483-0377) /uL Lymph # (Auto) 1700 (7997-8638) /uL [place] # (Auto) 400 (0-900) /uL Eos # (Auto) 100 (0-450) /uL Baso # (Auto) 100 (0-100) /uL D-Dimer (<500) ng/ml Sodium 138 (137-145) mmol/L Potassium 3.6 (3.4-5.1) mmol/L Chloride 106 (98-107) mmol/L Carbon Dioxide 23 (22-32) mmol/L BUN 13 (7-17) mg/dL Creatinine 0.69 (0.52-1.04) mg/dL Estimated GFR > 60 (>60) mL/min BUN/Creatinine Ratio 18.8 (6-22) Glucose 90 (80-110) mg/dL Lactate 1.0 (0.7-2.1) mmol/L Calcium 9.3 (8.4-10.2) mg/dL Total Bilirubin 0.5 (0.2-1.3) mg/dL AST 23 (14-36) IU/L ALT 14 (<35) IU/L Alkaline Phosphatase 52 (38-126) U/L Total Creatine Kinase (30-135) U/L CK-MB (CK-2) (<2.37) ng/mL CK-MB (CK-2) Rel Index (1.5-5.0) % Troponin I (0.01-0.034) ng/mL NT-Pro-B Natriuret Pep (<125) pg/mL Total Protein 7.4 (6.3-8.2) g/dL Albumin 4.3 (3.5-5.0) g/dL Globulin 3.1 (1.7-4.1) g/dL Albumin/Globulin Ratio 1.4 (1.0-2.8) 08/20/22 08/20/22 08/20/22 Range/Units 15:50 15:50 15:50 WBC (4.5-11.0) X10^3/uL RBC (4.0-5.2) X10^6/uL Hgb (12.0-16.0) g/dL Hct (36-46) % MCV (80-100) fL MCH (26-34) PG MCHC (30-36) % RDW (11.6-14.8) % Plt Count (150-400) X10^3/uL Neut % (Auto) (50-75) % Lymph % (Auto) (25-40) % [place] % (Auto) (3-14) % Eos % (Auto) (2-4) % Baso % (Auto) (0-2) % Neut # (Auto) (0745-1319) /uL Lymph # (Auto) (8026-1642) /uL [place] # (Auto) (0-900) /uL Eos # (Auto) (0-450) /uL Baso # (Auto) (0-100) /uL D-Dimer 296 (<500) ng/ml Sodium (137-145) mmol/L Potassium (3.4-5.1) mmol/L Chloride (98-107) mmol/L Carbon Dioxide (22-32) mmol/L BUN (7-17) mg/dL Creatinine (0.52-1.04) mg/dL Estimated GFR (>60) mL/min BUN/Creatinine Ratio (6-22) Glucose (80-110) mg/dL Lactate (0.7-2.1) mmol/L Calcium (8.4-10.2) mg/dL Total Bilirubin (0.2-1.3) mg/dL AST (14-36) IU/L ALT (<35) IU/L Alkaline Phosphatase (38-126) U/L Total Creatine Kinase 173 H (30-135) U/L CK-MB (CK-2) 1.24 (<2.37) ng/mL CK-MB (CK-2) Rel Index 0.7 L (1.5-5.0) % Troponin I < 0.012 (0.01-0.034) ng/mL NT-Pro-B Natriuret Pep 118 (<125) pg/mL Total Protein (6.3-8.2) g/dL Albumin (3.5-5.0) g/dL Globulin (1.7-4.1) g/dL Albumin/Globulin Ratio (1.0-2.8) Imaging Data Chest x-ray: Radiologist's Impression: PROCEDURE:? XR CHEST 2V ? INDICATIONS:? shortness of breath ? TECHNIQUE:? 2 views of the chest were acquired.? ? COMPARISON:? [facility], CR, XR CHEST 2V, 06/04/2022, 12:53. ? FINDINGS:? ? Surgical changes and devices:? None.? ? Lungs and pleura:? Lungs are clear.? No pleural effusions or pneumothorax.? ? Mediastinum:? Mediastinal contours are normal.? Heart size is normal.? ? Bones and chest wall:? No suspicious bony abnormalities.? Soft tissues appear unremarkable.? ? IMPRESSION:? No acute cardiopulmonary findings. ? ? Dictated by: Meme Rai M.D. on 08/20/2022 at 16:33 ? ? Approved by: Meme Rai M.D. on 08/20/2022 at 16:33 ? ECG Data Interpretation: Normal sinus rhythm, rightward axis, no acute ST-T changes. MDM Narrative Medical decision making narrative: 62-year-old female with past medical history SVT, history of allergic reactions, migraines presents to the ED with 2 days of substernal chest discomfort, shortness of breath. Concern for ACS versus CHF exacerbation versus PE versus gastritis versus GERD versus other. Will obtain EKG, chest x-ray, labs, troponin, BNP, D-dimer. Labs, chest x-ray, EKG without acute findings. Patient's symptoms greatly improved with the GI cocktail and Pepcid AC. Patient's symptoms could likely have been due to acid reflux. Recommend patient trial Pepcid AC for 2 weeks. ED return precautions discussed with patient. Patient verbalized understanding. <Mis Acosta, DO - Last Filed: 08/21/22 10:32> Lab Data Labs: Lab Results 08/20/22 08/20/22 08/20/22 Range/Units 15:50 15:50 15:50 WBC 6.3 (4.5-11.0) X10^3/uL RBC 4.19 (4.0-5.2) X10^6/uL Hgb 12.1 (12.0-16.0) g/dL Hct 36.0 (36-46) % MCV 85.9 (80-100) fL MCH 28.9 (26-34) PG MCHC 33.7 (30-36) % RDW 14.5 (11.6-14.8) % Plt Count 208 (150-400) X10^3/uL Neut % (Auto) 62.9 (50-75) % Lymph % (Auto) 27.4 (25-40) % [place] % (Auto) 6.7 (3-14) % Eos % (Auto) 2.2 (2-4) % Baso % (Auto) 0.8 (0-2) % Neut # (Auto) 4000 (3433-8445) /uL Lymph # (Auto) 1700 (1251-4344) /uL [place] # (Auto) 400 (0-900) /uL Eos # (Auto) 100 (0-450) /uL Baso # (Auto) 100 (0-100) /uL D-Dimer (<500) ng/ml Sodium 138 (137-145) mmol/L Potassium 3.6 (3.4-5.1) mmol/L Chloride 106 (98-107) mmol/L Carbon Dioxide 23 (22-32) mmol/L BUN 13 (7-17) mg/dL Creatinine 0.69 (0.52-1.04) mg/dL Estimated GFR > 60 (>60) mL/min BUN/Creatinine Ratio 18.8 (6-22) Glucose 90 (80-110) mg/dL Lactate 1.0 (0.7-2.1) mmol/L Calcium 9.3 (8.4-10.2) mg/dL Total Bilirubin 0.5 (0.2-1.3) mg/dL AST 23 (14-36) IU/L ALT 14 (<35) IU/L Alkaline Phosphatase 52 (38-126) U/L Total Creatine Kinase (30-135) U/L CK-MB (CK-2) (<2.37) ng/mL CK-MB (CK-2) Rel Index (1.5-5.0) % Troponin I (0.01-0.034) ng/mL NT-Pro-B Natriuret Pep (<125) pg/mL Total Protein 7.4 (6.3-8.2) g/dL Albumin 4.3 (3.5-5.0) g/dL Globulin 3.1 (1.7-4.1) g/dL Albumin/Globulin Ratio 1.4 (1.0-2.8) 08/20/22 08/20/22 08/20/22 Range/Units 15:50 15:50 15:50 WBC (4.5-11.0) X10^3/uL RBC (4.0-5.2) X10^6/uL Hgb (12.0-16.0) g/dL Hct (36-46) % MCV (80-100) fL MCH (26-34) PG MCHC (30-36) % RDW (11.6-14.8) % Plt Count (150-400) X10^3/uL Neut % (Auto) (50-75) % Lymph % (Auto) (25-40) % [place] % (Auto) (3-14) % Eos % (Auto) (2-4) % Baso % (Auto) (0-2) % Neut # (Auto) (4277-3283) /uL Lymph # (Auto) (6577-9669) /uL [place] # (Auto) (0-900) /uL Eos # (Auto) (0-450) /uL Baso # (Auto) (0-100) /uL D-Dimer 296 (<500) ng/ml Sodium (137-145) mmol/L Potassium (3.4-5.1) mmol/L Chloride (98-107) mmol/L Carbon Dioxide (22-32) mmol/L BUN (7-17) mg/dL Creatinine (0.52-1.04) mg/dL Estimated GFR (>60) mL/min BUN/Creatinine Ratio (6-22) Glucose (80-110) mg/dL Lactate (0.7-2.1) mmol/L Calcium (8.4-10.2) mg/dL Total Bilirubin (0.2-1.3) mg/dL AST (14-36) IU/L ALT (<35) IU/L Alkaline Phosphatase (38-126) U/L Total Creatine Kinase 173 H (30-135) U/L CK-MB (CK-2) 1.24 (<2.37) ng/mL CK-MB (CK-2) Rel Index 0.7 L (1.5-5.0) % Troponin I < 0.012 (0.01-0.034) ng/mL NT-Pro-B Natriuret Pep 118 (<125) pg/mL Total Protein (6.3-8.2) g/dL Albumin (3.5-5.0) g/dL Globulin (1.7-4.1) g/dL Albumin/Globulin Ratio (1.0-2.8) ECG Data Interpretation: Normal sinus rhythm, rightward axis, no acute ST-T changes. NATASHA-normal sinus rhythm rate 71. Wounds do your [address] changes no T-wave inversions similar to previous EKG Discharge Plan Departure Patient Disposition: Home Clinical Impression: Chest pain Instructions: DI for Atypical Chest Pain Activity Restrictions/Additional Instructions: You were evaluated in the ED today for chest pain and shortness of breath. Your chest x-ray, EKG, labs were normal. Your symptoms improved with the GI cocktail and Pepcid AC. Your symptoms might likely have been caused by acid reflux. You may continue to trial Pepcid AC twice a day for the next 14 days. Return to the ED if your symptoms worsen. Prescriptions: No Action meclizine 25 MG tablet 25 mg PO Q8H PRNQty: 100 0RF ketorolac 10 MG tablet 10 mg PO Q6H PRNQty: 20 0RF amitriptyline 10 MG tablet 0 PO HS Qty: 30 1RF lorazepam 0.5 mg tablet 0.5 mg PO Q8H PRN (Reason: fear of flying) Qty: 15 0RF Rx Instructions: Take 1/2-1 prior to flying as needed epinephrine [EpiPen 2-Lev] 0.3 mg/0.3 mL auto-injector 0.3 mg IM ONCE PRN (Reason: anaphylaxis) Qty: 2 0RF prednisone 20 mg tablet 20 mg PO DAILY PRN (Reason: arthralgia) Qty: 30 0RF Rx Instructions: administer with food or milk, do not take with NSAIDS. montelukast [Singulair] 10 mg tablet 10 mg PO QDAY Qty: 30 2RF Referrals: Marisa Payton ARNP [Primary Care Provider] - Visit Report Forms: Patient Portal/API <Mis Acosta DO - Last Filed: 08/21/22 10:32> Cosign ED Attending Cosignature Attestation: I was immediately available in the department for consultation. Documentation has been reviewed. I agree with assessment and plan.
[2022-08-20 18:30] VITALS: BP 132/69; PULSE 70; RESP 18
[2022-08-20 18:35] LABS: D Dimer 296 ng/ml (<500)
[2022-08-20 19:00] VITALS: BP 158/91; PULSE 83; RESP 24
[2022-08-20] MEDS: MAG HYDROX/ALUMINUM/SIMETH SUS 20 ML, LIDOCAINE VISCOUS 2% 15 ML PO (19:00)
[2022-08-20] MEDS: FAMOTIDINE 20 MG/2 ML VIAL IV (19:01)
== END 2022-08-20 19:30 | disposition home or self-care (01) ==
PROVIDERS: Emergency Medicine; Emergency Provider Student in an Organized Health Care Education/Training Program; PCP Internal Medicine
DX: R07.9 Chest pain, unspecified (principal); R06.02 Shortness of breath
CPT/HCPCS: 36415; 71046; 80053; 82550; 82553; 83605; 83880; 84484; 85025; 85379; 93005; 96374; 99284

== ENCOUNTER → 2023-04-18 10:37 | Outpatient (CLI) | payer OTHER, SELFPAY ==
--- NOTE | 2023-04-18 10:38 | DI.US.S_ITS ---
PROCEDURE: US CAROTID DOPPLER BI INDICATIONS: Atherosclerosis of other arteries TECHNIQUE: Color and pulse Doppler interrogation was performed of both carotid systems, with image documentation and velocity measurements. COMPARISON: None. FINDINGS: Stenosis calculations are based on SRU (Society of Radiologists in Ultrasound) criteria. Right side: Brachial blood pressure: 118/78 mm Hg. Common carotid artery peak systolic velocity: 86 cm/sec. Internal carotid artery peak systolic velocity: 92 cm/sec. Internal carotid artery end diastolic velocity: 32 cm/sec. External carotid artery peak systolic velocity: 79 cm/sec. ICA/CCA peak systolic ratio: 1.1 . Morgan scale imaging description: Mild atheromatous plaque is present at the carotid bifurcation. Percent internal carotid artery stenosis: Less than 50% stenosis. Vertebral artery: Flow direction is antegrade. Left side: Brachial blood pressure: 119/77 mm Hg. Common carotid artery peak systolic velocity: 88 cm/sec. Internal carotid artery peak systolic velocity: 93 cm/sec. Internal carotid artery end diastolic velocity: 37 cm/sec. External carotid artery peak systolic velocity: 70 cm/sec. ICA/CCA peak systolic ratio: 1.1 . Morgan scale imaging description: Mild atheromatous plaque is present at the distal common carotid artery and the carotid bifurcation. Percent internal carotid artery stenosis: Less than 50% stenosis. Vertebral artery: Flow direction is antegrade. IMPRESSION: Less than 50% stenosis of the bilateral internal carotid arteries. Dictated by: Meme Rai M.D. on 04/18/2023 at 14:09 Approved by: Meme Rai M.D. on 04/18/2023 at 14:14
== END ==
PROVIDERS: PCP Internal Medicine; Referring Provider Internal Medicine; Visit Provider Internal Medicine
DX: I70.8 Atherosclerosis of other arteries (principal); Z78.0 Asymptomatic menopausal state
CPT/HCPCS: 93880

== ENCOUNTER → 2023-05-17 12:17 | Outpatient (CLI) | payer OTHER, SELFPAY ==
--- NOTE | 2023-05-17 | DI.MRI.S_ITS ---
PROCEDURE: MR AB PANCREATIC/MRCP PROTOCOL INDICATIONS: liver hemangioma TECHNIQUE: Coronal HASTE through the abdomen, axial 2-D FLASH in- and [id number], and breath-hold T2 FSE with fat saturation through the biliary system and pancreas. Oblique coronal and axial thin-slice HASTE, radial thick-slab HASTE centered on the extrahepatic bile ducts. Intravenous secretin: Not requested. COMPARISON: MR 01/19/2022. FINDINGS: Image quality: Excellent. Liver: 2.0 cm segment 7 hemangioma with classic features. Tiny cysts at the liver dome (series 4, image 10 and series 19, image 30). Gallbladder and biliary tree: Common bile duct is mildly dilated, measuring up to 7.5 mm. This is stable from prior. Spleen: Normal size. Pancreas: No ductal dilation. Pancreatic divisum. Adrenal glands: No adrenal nodules. Kidneys: No hydronephrosis. No solid mass. No complex renal cysts which requires follow-up. Nodes and vessels: No retroperitoneal or mesenteric adenopathy by size criteria. Aorta and inferior vena cava are normal in size. Bowel and peritoneum: Unenhanced bowel loops are normal in caliber. No free fluid. Lung bases: No basal pleural effusions. Heart size is normal. Bones and soft tissues: No ventral hernias. Bone marrow is of normal overall signal. IMPRESSION: Stable liver hemangioma. Mild dilation of the common bile duct, measuring up to 7.5 mm. This is stable from prior. This could be physiologic or less likely represent a choledochal cyst. Dictated by: Abdiaziz Zepeda M.D. on 05/17/2023 at 13:24 Approved by: Abdiaziz Zepeda M.D. on 05/17/2023 at 13:29
== END ==
PROVIDERS: PCP Internal Medicine; Referring Provider Surgery; Visit Provider Surgery
DX: D18.03 Hemangioma of intra-abdominal structures (principal); K83.8 Other specified diseases of biliary tract
CPT/HCPCS: 74183; A9579

== ENCOUNTER → 2023-05-23 14:37 | Outpatient (CLI) | payer OTHER, SELFPAY ==
--- NOTE | 2023-05-23 | DI.MG.S_ITS ---
BILATERAL DIGITAL SCREENING MAMMOGRAM 3D/2D WITH CAD: 05/23/2023 CLINICAL: Routine screening. Comparison is made to exams dated: 08/27/2013 mammogram and 08/26/2012 mammogram - [facility]. Both breasts are extremely dense, which lowers the sensitivity of mammography (category d />75% glandular tissue). Current study was also evaluated with a Computer Aided Detection (CAD) system. No significant masses, calcifications, or other findings are seen in either breast. There has been no significant interval change. IMPRESSION: NEGATIVE There is no mammographic evidence of malignancy. A 1 year screening mammogram is recommended. Based on the Tyrer Cuzick model (a risk assessment model) the patient's lifetime risk is 11.2% and her 10 year risk is 4.9%. According to the ACR, ACS, and NCCN guidelines, an annual breast MRI exam along with mammogram is recommended if the patient's lifetime risk is 20% or greater. This exam was interpreted at Station ID: [id number]. NOTE: For mammograms, a report in lay terms will be sent to the patient. Approximately 15% of breast malignancies will not be visualized mammographically. In the management of a palpable breast mass, a negative mammogram must not discourage biopsy of a clinically suspicious lesion. Electronically Signed By: Ankit toney/[email or web address]:05/23/2023 18:30:15 letter sent: Normal Exam ACR BI-RADS Category 1: Negative 3341F
== END ==
PROVIDERS: PCP Internal Medicine; Referring Provider Internal Medicine; Visit Provider Internal Medicine
DX: Z12.31 Encounter for screening mammogram for malignant neoplasm of breast (principal)
CPT/HCPCS: 77063; 77067

== ENCOUNTER → 2023-05-30 13:10 | Outpatient (CLI) | payer OTHER, SELFPAY ==
--- NOTE | 2023-05-30 | DI.US.S_ITS ---
PROCEDURE: US EXTREMITY NONVASC LOWER RT INDICATIONS: RIGHT THIGH MASS TECHNIQUE: Real-time scanning was performed of the right thigh, with image documentation. COMPARISON: None. FINDINGS: No suspicious mass is seen at the palpable area of concern in the right thigh. No definite circumscribed lipoma. No focal fluid collection. IMPRESSION: No significant sonographic abnormality s seen at the palpable area of concern. If symptoms persist, MRI or CT could be performed for further evaluation. Approved by: John Paul Sunshine M.D. on 05/30/2023 at 20:29
== END ==
PROVIDERS: PCP Internal Medicine; Referring Provider Internal Medicine; Visit Provider Internal Medicine
DX: R22.41 Localized swelling, mass and lump, right lower limb (principal)
CPT/HCPCS: 76882

== ENCOUNTER 2024-04-07 09:58 | Emergency (ER) | payer OTHER, SELFPAY ==
[2024-04-07] VITALS (11 sets, daily range): BP systolic 127–173; BP diastolic 61–91; PULSE 74–96; RESP 13–20; O2SAT 96–100; BMI 22.1
--- NOTE | 2024-04-07 10:04 | DI.CT.S_ITS ---
PROCEDURE: CT ANGIO CHEST PE PROTOCOL INDICATIONS: Chest pain, shortness of breath, tachycardia TECHNIQUE: After the administration of intravenous contrast, 2 mm thick sections acquired from the pulmonary apices to the posterior costophrenic angles. 3-dimensional maximum intensity projection (MIP) coronal and sagittal reformats were then acquired through the thorax. For radiation dose reduction, the following was used: automated exposure control, adjustment of mA and/or kV according to patient size. COMPARISON: None. FINDINGS: Image quality: Diagnostic. Pulmonary arteries: Pulmonary arteries are normal in size, and demonstrate no intraluminal filling defects to suggest central pulmonary embolism. Lower Neck: No enlarged lymph nodes. Thyroid: No thyroid nodules which require sonographic follow up, per consensus guidelines. Axillae: No enlarged lymph nodes. Chest Wall: Unremarkable. Bones: Unremarkable. Lungs and Pleura: No pneumothorax or pleural effusions. No consolidation or suspicious nodules. Heart: Heart size is normal. No pericardial effusion. Thoracic Vessels: No aortic aneurysm. Mediastinum and Sujatha: No enlarged lymph nodes. Esophagus: No wall thickening. No hiatal hernia. Upper Abdomen: Visualized upper abdomen solid organs and bowel loops appear normal. IMPRESSION: No pulmonary embolus. No acute cardiopulmonary process. Dictated by: Meme Rai M.D. on 04/07/2024 at 11:49 Approved by: Meme Rai M.D. on 04/07/2024 at 11:52
--- NOTE | 2024-04-07 10:08 | ED_ITS ---
HPI - General Adult General Chief complaint: Chest Pain Stated complaint: sent by [facility], heart attack? Time Seen by Provider: 04/07/24 10:03 Source: patient and other (Service Secretary) Mode of arrival: Ambulatory Limitations: no limitations History of Present Illness HPI narrative: Patient is a 64-year-old female. I received a call from her education department registrar's office. Patient was seen in the education department registrar's office today. She has a history of PSVT. Has not had any issues with this for quite some time. She stated that for the past week she has had shortness of breath. Initially she stated that it was intermittent but then stated that it was occurring quite often when she was up exerting herself. Some minor chest pain as well. Had an EKG done in the education department registrar office that was sinus rhythm. Has noncritical coronary artery calcifications noted on a CT scan at the end of last year. Was recommended by the education department registrar that patient be evaluated for pulmonary embolism, ACS or potential other source of her shortness of breath and then disposition accordingly. Patient denies abdominal pain. No lower extremity swelling. No nausea or vomiting. No fevers. Related Data Previous Rx's Medication Instructions Recorded meclizine 25 mg tablet 25 mg PO Q8H PRN #100 tabs 03/10/18 amitriptyline 10 mg tablet 0 PO HS #30 tabs 03/11/18 ketorolac 10 mg tablet 10 mg PO Q6H PRN #20 tabs 03/11/18 epinephrine 0.3 mg/0.3 mL 0.3 mg (0.3 mL) IM ONCE PRN 05/27/18 injection, auto-injector (EpiPen anaphylaxis #2 ea 2-Lev) lorazepam 0.5 mg tablet 0.5 mg PO Q8H PRN fear of flying 05/27/18 #15 tabs prednisone 20 mg tablet 20 mg PO DAILY PRN arthralgia #30 09/15/18 tabs montelukast 10 mg tablet 10 mg PO QDAY #30 tabs 11/04/18 (Singulair) Allergies Allergy/AdvReac Type Severity Reaction Status Date / Time Sulfa (Sulfonamide Allergy Severe severe Verified 08/20/22 15:46 Antibiotics) immediate [SULFA (SULFONAMIDE hives ANTIBIOTICS)] Review of Systems Review of Systems ROS Unobtainable: All systems reviewed & are unremarkable except as noted in HPI and below Patient History Medical History Retinal tear (2014) Chronic headaches GERD (gastroesophageal reflux disease) Hayfever (1961) Vertigo (2014) Surgical History Anesthesia History of excision of mass (2010) Family History Grandmother PSVT (paroxysmal supraventricular tachycardia) Mother Age: 84 Heart disease PSVT (paroxysmal supraventricular tachycardia) Heart palpitations Sister Age: 63 Hypertension Obesity Brother Prediabetes Father Melanoma Grandfather No problems noted. Grandfather No problems noted. Grandmother No problems noted. Social History Smoking Status: Never smoker alcohol intake: never substance use type: does not use Smoking Status: Never smoker alcohol intake frequency: holidays/special occasions only Substance Use Type: does not use Exam Initial Vital Signs Initial Vital Signs: Vital Signs Pulse Rate 85 04/07/24 10:08 Respiratory Rate 19 04/07/24 10:08 Pulse Oximetry 100 04/07/24 10:08 Const General: cooperative and No ill appearing HENMT Head: normal to inspection and normocephalic Resp Effort & Inspection: no cough, not labored, no retractions and tachypneic Auscultation: no rhonchi and no wheezes Cardio Rate: regular rate Rhythm: regular rhythm GI Inspection: normal to inspection and non-distended Skin General: no rashes or lesions noted Neuro General: patient alert, patient awake, patient oriented x3 and moves all extremities Extrem General: No edema Course Orders Ordered: ED Orders 04/07/24 10:04 CT angio chest PE protocol Stat EKG-12 Lead Stat 04/07/24 10:14 Complete Blood Count AUTO DIFF Stat Comprehensive Metabolic Panel Stat Lipase Stat Magnesium Stat NT-proBNP (BNP-Adult 18+) Stat PTT Partial Thromboplastin Emiliano Stat Procalcitonin Stat Prothrombin Time INR Stat Troponin & CK Cardiac Panel Stat 04/07/24 10:19 Respiratory Panel (Film Array) Stat 04/07/24 12:14 Troponin & CK Cardiac Panel Stat Vital Signs Vital signs: Vital Signs - 8 hr 04/07/24 10:08 04/07/24 10:16 04/07/24 10:16 Pulse Rate 85 80 Respiratory Rate 19 13 Blood Pressure 152/72 H Pulse Oximetry 100 99 Oxygen Delivery Method 04/07/24 10:17 04/07/24 10:30 04/07/24 10:30 Pulse Rate 86 80 Respiratory Rate 16 Blood Pressure 173/77 H 153/73 H Pulse Oximetry 99 99 Oxygen Delivery Method Room Air 04/07/24 10:39 04/07/24 11:00 04/07/24 11:00 Pulse Rate 79 77 Respiratory Rate 18 Blood Pressure 153/73 H 141/71 H Pulse Oximetry 97 99 Oxygen Delivery Method Room Air 04/07/24 11:17 04/07/24 11:17 04/07/24 11:30 Pulse Rate 82 Respiratory Rate 15 Blood Pressure 158/91 H 139/66 Pulse Oximetry 99 Oxygen Delivery Method 04/07/24 11:30 04/07/24 12:00 04/07/24 12:00 Pulse Rate 89 76 Respiratory Rate 17 20 Blood Pressure 130/61 Pulse Oximetry 99 98 Oxygen Delivery Method Room Air 04/07/24 12:30 04/07/24 12:30 Pulse Rate 74 Respiratory Rate Blood Pressure 127/64 Pulse Oximetry 98 Oxygen Delivery Method Medical Decision Making Lab Data Lab results reviewed: Yes I reviewed the patient's lab results. 04/07/24 10:14 04/07/24 10:14 Labs: Lab Results 04/07/24 04/07/24 04/07/24 Range/Units 10:14 10:19 12:14 WBC 6.2 (4.5-11.0) X10^3/uL RBC 4.74 (4.0-5.2) X10^6/uL Hgb 14.2 (12.0-16.0) g/dL Hct 41.8 (36-46) % MCV 88.2 (80-100) fL MCH 29.9 (26-34) PG MCHC 33.9 (30-36) % RDW 13.9 (11.6-14.8) % Plt Count 227 (150-400) X10^3/uL Neut % (Auto) 57.1 (50-75) % Lymph % (Auto) 34.3 (25-40) % [place] % (Auto) 6.6 (3-14) % Eos % (Auto) 1.5 L (2-4) % Baso % (Auto) 0.5 (0-2) % Neut # (Auto) 3600 (3678-1541) /uL Lymph # (Auto) 2100 (5880-4329) /uL [place] # (Auto) 400 (0-900) /uL Eos # (Auto) 100 (0-450) /uL Baso # (Auto) 0 (0-100) /uL PT 11.0 (9.4-12.5) SECONDS INR 1.0 (0.9-1.3) APTT 37 H (25.1-36.5) SECONDS Sodium 137 (137-145) mmol/L Potassium 3.6 (3.4-5.1) mmol/L Chloride 103 (98-107) mmol/L Carbon Dioxide 27 (22-32) mmol/L BUN 15 (7-17) mg/dL Creatinine 0.81 (0.52-1.04) mg/dL Estimated GFR > 60 (>60) mL/min BUN/Creatinine Ratio 18.5 (6-22) Glucose 102 (80-110) mg/dL Calcium 9.6 (8.4-10.2) mg/dL Magnesium 2.2 (1.6-2.3) mg/dL Total Bilirubin 0.7 (0.2-1.3) mg/dL AST 32 (14-36) IU/L ALT 17 (<35) IU/L Alkaline Phosphatase 53 (38-126) U/L Total Creatine Kinase 116 115 (30-135) U/L Troponin I < 0.012 0.020 (0.01-0.034) ng/mL NT-Pro-B Natriuret Pep < 20 (<125) pg/mL Total Protein 8.2 (6.3-8.2) g/dL Albumin 5.0 (3.5-5.0) g/dL Globulin 3.2 (1.7-4.1) g/dL Albumin/Globulin Ratio 1.6 (1.0-2.8) Lipase 132 (23-300) U/L Procalcitonin < 0.03 (<0.5) ng/mL Chlamy pneumoniae PCR Not detected (Not Detect) Adenovirus (PCR) Not detected (Not Detect) B.parapertussis DNA PCR Not detected (Not Detecte) Coronavirus OC43 (PCR) Not detected (Not Detect) Coronavirus HKU1 (PCR) Not detected (Not Detect) Coronavirus 229E (PCR) Not detected (Not Detect) SARS-CoV-2 (PCR) Not detected (Not Detecte) Coronavirus NL63 (PCR) Not detected (Not Detect) Human Metapneumovir PCR Not detected (Not Detect) Influenza Type A (PCR) Not detected (Not Detect) Influenza Type B (PCR) Not detected (Not Detect) M. pneumoniae (PCR) Not detected (Not Detect) Parainfluenza 1 (PCR) Not detected (Not Detect) Parainfluenza 2 (PCR) Not detected (Not Detect) Parainfluenza 3 (PCR) Not detected (Not Detect) Parainfluenza 4 (PCR) Not detected (Not Detect) RSV (PCR) Not detected (Not Detect) Entero/Rhino (PCR) Not detected (Not Detect) Imaging Data CTA - brain/neck: Radiologist's Impression: PROCEDURE: CT ANGIO CHEST PE PROTOCOL INDICATIONS: Chest pain, shortness of breath, tachycardia TECHNIQUE: After the administration of intravenous contrast, 2 mm thick sections acquired from the pulmonary apices to the posterior costophrenic angles. 3-dimensional maximum intensity projection (MIP) coronal and sagittal reformats were then acquired through the thorax. For radiation dose reduction, the following was used: automated exposure control, adjustment of mA and/or kV according to patient size. COMPARISON: None. FINDINGS: Image quality: Diagnostic. Pulmonary arteries: Pulmonary arteries are normal in size, and demonstrate no intraluminal filling defects to suggest central pulmonary embolism. Lower Neck: No enlarged lymph nodes. Thyroid: No thyroid nodules which require sonographic follow up, per consensus guidelines. Axillae: No enlarged lymph nodes. Chest Wall: Unremarkable. Bones: Unremarkable. Lungs and Pleura: No pneumothorax or pleural effusions. No consolidation or suspicious nodules. Heart: Heart size is normal. No pericardial effusion. Thoracic Vessels: No aortic aneurysm. Mediastinum and Sujatha: No enlarged lymph nodes. Esophagus: No wall thickening. No hiatal hernia. Upper Abdomen: Visualized upper abdomen solid organs and bowel loops appear normal. IMPRESSION: No pulmonary embolus. No acute cardiopulmonary process. ECG Data Interpretation: Sinus rhythm Ventricular rate 85 Right axis deviation Nonspecific ST T wave changes MDM Narrative Medical decision making narrative: Workup here in the emergency department is very reassuring. CT scan shows no signs of a pulmonary embolism. Chest x-ray is unremarkable. Troponins are negative. Nonspecific changes on the EKG. She was not clinically in heart failure. Not anemic. Electrolytes are unremarkable. I did discuss the case with Dr. Roach he was the patient's education department registrar who recommended that patient be discharged home and he would arrange for an outpatient stress test and echocardiogram. She was given return precautions and follow-up instructions. She expressed understanding and agreement with plan. Discharge Plan Departure Patient Disposition: Home Clinical Impression: Shortness of breath Activity Restrictions/Additional Instructions: I recommend that you contact your education department registrar office as he would like you to have some further testing done as an outpatient to include a stress test and an echocardiogram. Continue to take all of your medications as directed. Return to the emergency department for new or worsening symptoms Prescriptions: No Action meclizine 25 MG tablet 25 mg PO Q8H PRNQty: 100 0RF ketorolac 10 MG tablet 10 mg PO Q6H PRNQty: 20 0RF amitriptyline 10 MG tablet 0 PO HS Qty: 30 1RF lorazepam 0.5 mg tablet 0.5 mg PO Q8H PRN (Reason: fear of flying) Qty: 15 0RF Rx Instructions: Take 1/2-1 prior to flying as needed epinephrine [EpiPen 2-Lev] 0.3 mg/0.3 mL auto-injector 0.3 mg IM ONCE PRN (Reason: anaphylaxis) Qty: 2 0RF prednisone 20 mg tablet 20 mg PO DAILY PRN (Reason: arthralgia) Qty: 30 0RF Rx Instructions: administer with food or milk, do not take with NSAIDS. montelukast [Singulair] 10 mg tablet 10 mg PO QDAY Qty: 30 2RF Referrals: Marisa Payton ARNP [Primary Care Provider] - Stand Alone Forms: Patient Portal/API
[2024-04-07 10:28] LABS: Add Manual Diff / Slide Review NO; Basophils Absolute Auto 0 /uL (0-100); Basophils Percent Auto 0.5 % (0-2); Eosinophils Absolute Auto 100 /uL (0-450); Eosinophils Percent Auto 1.5 % (2-4); Hematocrit 41.8 % (36-46); Hemoglobin 14.2 g/dL (12.0-16.0); Lymphocytes Absolute Auto 2100 /uL (1100-4500); Lymphocytes Percent Auto 34.3 % (25-40); Mean Corpuscular HGB Conc 33.9 % (30-36); Mean Corpuscular Hemoglobin 29.9 PG (26-34); Mean Corpuscular Volume 88.2 fL (80-100); Monocytes Absolute Auto 400 /uL (0-900); Monocytes Percent Auto 6.6 % (3-14); Neutrophils Absolute Auto 3600 /uL (1500-7000); Neutrophils Percent Auto 57.1 % (50-75); Platelet Count 227 X10^3/uL (150-400); Red Blood Cell Count 4.74 X10^6/uL (4.0-5.2); Red Cell Distribution Width 13.9 % (11.6-14.8); White Blood Cell Count 6.2 X10^3/uL (4.5-11.0)
[2024-04-07 10:37] LABS: PTT Partial Thromboplastin Tim 37 SECONDS (25.1-36.5)
[2024-04-07 10:45] LABS: Alanine Aminotransferase 17 IU/L (<35); Albumin Globulin Ratio 1.6 (1.0-2.8); Alkaline Phosphatase 53 U/L (38-126); Aspartate Aminotransferase 32 IU/L (14-36); BUN Creatinine Ratio 18.5 (6-22); Bilirubin Total 0.7 mg/dL (0.2-1.3); Blood Urea Nitrogen 15 mg/dL (7-17); Calcium 9.6 mg/dL (8.4-10.2); Carbon Dioxide 27 mmol/L (22-32); Chloride 103 mmol/L (98-107); Creatine Kinase 116 U/L (30-135); Estimated Glomerular Filt Rate > 60 mL/min (>60); Globulin 3.2 g/dL (1.7-4.1); Glucose 102 mg/dL (80-110); HEMOLYSIS < 15 (0-50); Lipase 132 U/L (23-300); Magnesium 2.2 mg/dL (1.6-2.3); Potassium 3.6 mmol/L (3.4-5.1); Sodium 137 mmol/L (137-145); Total Protein 8.2 g/dL (6.3-8.2)
[2024-04-07 10:55] LABS: NT-proBNP (BNP-Adult 18+) < 20 pg/mL (<125); Troponin I < 0.012 ng/mL (0.01-0.034)
[2024-04-07 11:00] LABS: Procalcitonin < 0.03 ng/mL (<0.5)
[2024-04-07 11:25] LABS: Adenovirus Not Detected (Not Detect); B. parapertussis Not Detected (Not Detecte); Bordetella pertussis Not Detected (Not Detect); Chlamydophila pneumoniae Not Detected (Not Detect); Coronavirus 229E Not Detected (Not Detect); Coronavirus HKU1 Not Detected (Not Detect); Coronavirus NL 63 Not Detected (Not Detect); Coronavirus OC43 Not Detected (Not Detect); Human Metapneumovirus Not Detected (Not Detect); Human Rhinovirus/Enterovirus Not Detected (Not Detect); Influenza A Not Detected (Not Detect); Influenza B Not Detected (Not Detect); Mycoplasma pneumoniae Not Detected (Not Detect); Parainfluenza Virus 1 Not Detected (Not Detect); Parainfluenza Virus 2 Not Detected (Not Detect); Parainfluenza Virus 3 Not Detected (Not Detect); Parainfluenza Virus 4 Not Detected (Not Detect); Respiratory Syncytial Virus Not Detected (Not Detect); SARS- CoV-2 Not Detected (Not Detecte)
[2024-04-07 12:40] LABS: Creatine Kinase 115 U/L (30-135)
== END 2024-04-07 13:16 | disposition home or self-care (01) ==
PROVIDERS: Emergency Provider Emergency Medicine; Family Provider Internal Medicine; PCP Internal Medicine
DX: R06.02 Shortness of breath (principal); R07.9 Chest pain, unspecified
CPT/HCPCS: 36415; 71275; 80053; 82550; 83690; 83735; 83880; 84145; 84484; 85025; 85610; 85730; 87633; 93005; 93010; 99283; 99284

== ENCOUNTER 2024-06-02 11:15 | Outpatient (RCR) | payer OTHER, SELFPAY ==
--- NOTE | 2024-04-09 18:36 | PT.OIE ---
Current Diagnoses Other chronic pain (04/14/24) Spinal instabilities, sacral and sacrococcygeal region (04/14/24) Low back pain, unspecified (04/14/24) Weakness (04/14/24) Past Medical History (Last Reviewed 04/07/24 @ 10:14 by Oziel Vinson DO) Chronic headaches GERD (gastroesophageal reflux disease) Hayfever (196) Retinal tear (2014) Vertigo (2015) Past Surgical History (Last Reviewed 08/20/22 @ 19:21 by Venancio Buckley PA-C) Anesthesia History of excision of mass (2010) Visit Care Team Role Provider Type MARLY Mckinley Attending Provider [employer] Mechanic Family Provider Primary Care Provider Referring Provider Specialty: [facility] Practice Address: [address] [place] [address], [facility] [place] [place], [facility] Email: [email or web address] Physical Therapy Initial Evaluation PT-OP-A Visit Information Start: 04/09/24 13:49 Freq: Status: Active Protocol: Document 04/09/24 14:30 [facility] (Rec: 04/09/24 15:16 [facility] [id number]) Out-Patient Physical Therapy Visit Information Visit Information Visit Type Initial Evaluation Visit Start Time 14:30 Visit Stop Time 15:15 Visit Number 1 Evaluation Information Evaluation Date 04/09/24 PT-OP-B Current Condition Start: 04/09/24 13:49 Freq: Status: Active Protocol: Document 04/09/24 14:30 [facility] (Rec: 04/09/24 15:16 [facility] [id number]) Current Condition History of Current Condition Onset Date 20 years ago Current Complaints Left sided SI pain History of Current Condition over 20 years ago after a 3 day hike Delicia started experiencing left SI joint pain. She notes she started PT and was told she had a elevated left pelvis, she has had chronic pain since this time. Delicia notes she does do piriforms stretches and yoga stretches and she finds there are times when the pain won't go away. Sitting cross legged she knows aggravates her pain. She gardens, walks, does yoga, she has a dark room where she is standing. Treatment Goals Patient/Caregiver Goals goals include reducing pain allowing her to walk longer than a mile painfree and continue with her hiking Current Functional Impairments (Reported) Functional Limitations- Mobility/Gait pain with greater than 1 mile, pain increases with sitting Functional Limitations- Recreation/ hiking is limited due to pain Hobbies PT-OP-C Subjective Start: 04/09/24 13:49 Freq: Status: Active Protocol: Document 04/09/24 14:30 [facility] (Rec: 04/14/24 16:39 [facility] [id number]) Patient Questionnaires Oswestry Low Back Index Oswestry Score 5 Oswestry Impairment 1 to 19% Impaired (Score 1-19) OP-PT Pain Assessment Pain Assessment Grid Paper Pain Assessment Grid Completed Yes Location Left SI joint Pain Location Details pain can increase from a 3 to a 7 Intensity 5 Scale Used Numeric (0 - 10) Description Aching Other Pain Aggravating Factors pain with walking greater than 1 mile, sitting increases pain PT-OP-F Manual Assessment Start: 04/09/24 13:49 Freq: Status: Active Protocol: Document 04/09/24 13:45 [facility] (Rec: 04/14/24 18:34 [facility] [id number]) Manual Assessments Soft Tissue Assessment Soft Tissue Mobility Assessment left sided ITB tightness, iliopsoas tighness with + min test left sided QL and paraspinal tightness Joint Mobility Assessment Joint Mobility Assessment SIJ instability with + ASLR test R inflare left innominant PT-OP-J Posture/Palpation/Skin Start: 04/09/24 13:49 Freq: Status: Active Protocol: Document 04/09/24 13:45 [facility] (Rec: 04/14/24 18:34 [facility] [id number]) Palpation Assessment Location Left PSIS Palpation Findings Tenderness PT-OP-K Range of Motion Start: 04/09/24 13:49 Freq: Status: Active Protocol: Document 04/09/24 13:45 [facility] (Rec: 04/14/24 18:34 [facility] [id number]) Lumbar Spine Range of Motion Lumbar Spine Active Testing Position Standing Lateral Flexion Left 10 Lateral Flexion Right 15 ROM Limitations Soft Tissue Tightness PT-OP-M Strength Start: 04/09/24 13:49 Freq: Status: Active Protocol: Document 04/09/24 14:30 [facility] (Rec: 04/14/24 18:35 [facility] [id number]) Trunk Strength Trunk Manual Muscle Testing Flexion 3+ Fair+ Core Stabilization Decreased inner core stabilzation with + ASLR test on R Decreased TA stabilization PT-OP-Q Treatments Start: 04/09/24 13:49 Freq: Status: Active Protocol: Document 04/09/24 16:21 [facility] (Rec: 04/09/24 16:27 [facility] [id number]) Therapeutic Exercises Supine Exercises TA with heel slides Reps/Minutes left leg supine marches Reps/Minutes x 20 only right side supine hip roll outs with theraband Equipment Used level 3 TB Reps/Minutes 2 x 10 reps knee to chest then pull across body Side bilateral Reps/Minutes hold 30 sec each side single knee to chest Side bilateral Reps/Minutes hold 30 sec each side Sidelying Exercises clam shells Reps/Minutes 3x 10 reps Sitting Exercises sidebending to the right Side left Reps/Minutes hold 30 sec 2-3 reps Comments cues to stretch left side body Other Exercises jesusita pose with arms to the right side to open up left sidebody Reps/Minutes 30 sec to 1 min Manual Therapy Treatment Manual Techniques MET for left inflare Body Position Hooklying Reps/Duration 5 reps left sacral LIZ posterior PA glides Body Position Prone Comments worked on posterior glides of the left sacral LIZ as pt presented with left sacral rotation PT-OP-T Assessment and Plan Start: 04/09/24 13:49 Freq: Status: Active Protocol: Document 04/09/24 14:30 [facility] (Rec: 04/14/24 16:39 [facility] [id number]) Physical Therapy Assessment Rehab Potential Rehabilitation Potential Excellent Evaluation Complexity Number of Personal Factors/Comorbidities 0 Number of Body Systems Impaired 1-2 Clinical Presentation at Evaluation Stable Impairments Impairments Activity Tolerance,Functional Activities,Pain,Soft Tissue Mobility,Strength,Tone Assessment Summary Assessment Delicia is a 64 year old female referred to PT with chronic complaints of left sided SI pain and tightness. Her pain worsens with walking greater than 1 mile and with sitting. Her pain started approx 20 years ago after a long 3 day hike. She describes the pain as mild currently but it can elevate to 7/10 pain if she pushes how long she walks or hikes. With exam today Delicia is tender at the left PSIS joint. She has left sided ITB tightness and is inflared on the left. There is a + ASLR test with the right leg with left side SIJ unlocking. There is tightness in the QL and lumbar paraspinals on the left. She tests weak in the left hip abductors and left hip ER. Delicia is a good candidate for PT for SI joint stabilization and manual therapy techniques to stabilize the SIJ. She was shown stabilization and stretching exercises today and tolerated this well. Physical Therapy Plan Frequency and Duration Frequency of Treatment 1x/Week Duration of treatment (weeks) 8 Plan of Care Start Date 04/09/24 Plan of Care End Date 06/04/24 Therapeutic Interventions Therapeutic Interventions Home Exercise Program,Manual Therapy,Neuromuscular Re- education,Patient/Caregiver Education,Self-Care/Home Management,Soft Tissue Mobilization,Therapeutic Exercises Next Visit Focus/Plan Next Note Type Treatment Note Next Visit Plan Progress core stabilization, recheck inflare next visit and sacral position
--- NOTE | 2024-04-09 18:42 | PT.OIE ---
Current Diagnoses Other chronic pain (04/14/24) Spinal instabilities, sacral and sacrococcygeal region (04/14/24) Low back pain, unspecified (04/14/24) Weakness (04/14/24) Past Medical History (Last Reviewed 04/07/24 @ 10:14 by Oziel Vinson DO) Chronic headaches GERD (gastroesophageal reflux disease) Hayfever (196) Retinal tear (2014) Vertigo (2015) Past Surgical History (Last Reviewed 08/20/22 @ 19:21 by Venancio Buckley PA-C) Anesthesia History of excision of mass (2010) Visit Care Team Role Provider Type MARLY Mckinley Attending Provider Advanced Assistant In Nursing Family Provider Primary Care Provider Referring Provider Specialty: [facility] Practice Address: [address] [place] [address], [facility] [place], [place], [facility] Email: [email or web address] Physical Therapy Initial Evaluation PT-OP-A Visit Information Start: 04/09/24 13:49 Freq: Status: Active Protocol: Document 04/09/24 14:30 [facility] (Rec: 04/09/24 15:16 [facility] [id number]) Out-Patient Physical Therapy Visit Information Visit Information Visit Type Initial Evaluation Visit Start Time 14:30 Visit Stop Time 15:15 Visit Number 1 Evaluation Information Evaluation Date 04/09/24 PT-OP-B Current Condition Start: 04/09/24 13:49 Freq: Status: Active Protocol: Document 04/09/24 14:30 [facility] (Rec: 04/09/24 15:16 [facility] [id number]) Current Condition History of Current Condition Onset Date 20 years ago Current Complaints Left sided SI pain History of Current Condition over 20 years ago after a 3 day hike Delicia started experiencing left SI joint pain. She notes she started PT and was told she had a elevated left pelvis, she has had chronic pain since this time. Delicia notes she does do piriforms stretches and yoga stretches and she finds there are times when the pain won't go away. Sitting cross legged she knows aggravates her pain. She gardens, walks, does yoga, she has a dark room where she is standing. Treatment Goals Patient/Caregiver Goals goals include reducing pain allowing her to walk longer than a mile painfree and continue with her hiking Current Functional Impairments (Reported) Functional Limitations- Mobility/Gait pain with greater than 1 mile, pain increases with sitting Functional Limitations- Recreation/ hiking is limited due to pain Hobbies PT-OP-C Subjective Start: 04/09/24 13:49 Freq: Status: Active Protocol: Document 04/09/24 14:30 [facility] (Rec: 04/14/24 16:39 [facility] [id number]) Patient Questionnaires Oswestry Low Back Index Oswestry Score 5 Oswestry Impairment 1 to 19% Impaired (Score 1-19) OP-PT Pain Assessment Pain Assessment Grid Paper Pain Assessment Grid Completed Yes Location Left SI joint Pain Location Details pain can increase from a 3 to a 7 Intensity 5 Scale Used Numeric (0 - 10) Description Aching Other Pain Aggravating Factors pain with walking greater than 1 mile, sitting increases pain PT-OP-F Manual Assessment Start: 04/09/24 13:49 Freq: Status: Active Protocol: Document 04/09/24 13:45 [facility] (Rec: 04/14/24 18:34 [facility] [id number]) Manual Assessments Soft Tissue Assessment Soft Tissue Mobility Assessment left sided ITB tightness, iliopsoas tighness with + min test left sided QL and paraspinal tightness Joint Mobility Assessment Joint Mobility Assessment SIJ instability with + ASLR test R inflare left innominant PT-OP-J Posture/Palpation/Skin Start: 04/09/24 13:49 Freq: Status: Active Protocol: Document 04/09/24 13:45 [facility] (Rec: 04/14/24 18:34 [facility] [id number]) Palpation Assessment Location Left PSIS Palpation Findings Tenderness PT-OP-K Range of Motion Start: 04/09/24 13:49 Freq: Status: Active Protocol: Document 04/09/24 13:45 [facility] (Rec: 04/14/24 18:34 [facility] [id number]) Lumbar Spine Range of Motion Lumbar Spine Active Testing Position Standing Lateral Flexion Left 10 Lateral Flexion Right 15 ROM Limitations Soft Tissue Tightness PT-OP-M Strength Start: 04/09/24 13:49 Freq: Status: Active Protocol: Document 04/09/24 14:30 [facility] (Rec: 04/14/24 18:35 [facility] [id number]) Trunk Strength Trunk Manual Muscle Testing Flexion 3+ Fair+ Core Stabilization Decreased inner core stabilzation with + ASLR test on R Decreased TA stabilization PT-OP-Q Treatments Start: 04/09/24 13:49 Freq: Status: Active Protocol: Document 04/09/24 16:21 [facility] (Rec: 04/09/24 16:27 [facility] [id number]) Therapeutic Exercises Supine Exercises TA with heel slides Reps/Minutes left leg supine marches Reps/Minutes x 20 only right side supine hip roll outs with theraband Equipment Used level 3 TB Reps/Minutes 2 x 10 reps knee to chest then pull across body Side bilateral Reps/Minutes hold 30 sec each side single knee to chest Side bilateral Reps/Minutes hold 30 sec each side Sidelying Exercises clam shells Reps/Minutes 3x 10 reps Sitting Exercises sidebending to the right Side left Reps/Minutes hold 30 sec 2-3 reps Comments cues to stretch left side body Other Exercises jesusita pose with arms to the right side to open up left sidebody Reps/Minutes 30 sec to 1 min Manual Therapy Treatment Manual Techniques MET for left inflare Body Position Hooklying Reps/Duration 5 reps left sacral LIZ posterior PA glides Body Position Prone Comments worked on posterior glides of the left sacral LIZ as pt presented with left sacral rotation PT-OP-T Assessment and Plan Start: 04/09/24 13:49 Freq: Status: Active Protocol: Document 04/09/24 14:30 [facility] (Rec: 04/14/24 16:39 [facility] [id number]) Physical Therapy Assessment Rehab Potential Rehabilitation Potential Excellent Evaluation Complexity Number of Personal Factors/Comorbidities 0 Number of Body Systems Impaired 1-2 Clinical Presentation at Evaluation Stable Impairments Impairments Activity Tolerance,Functional Activities,Pain,Soft Tissue Mobility,Strength,Tone Goals 3 Impairment Tightness of the left ITB and iliopsoas muscle with + min test on the left Short Term Goal (STG) Delicia is educated in stretches for the hip to reduce tone in the ITB and iliopsoas hip muscles. STG Duration 4 weeks Outside Machinist Helper Goal (LTG) Delicia presents with improved length of the ITB and iliopsoas and has a negative min test LTG Duration 8 weeks 2 Impairment Decreased core strength with SIJ instability Short Term Goal (STG) ASLR test on the right is negative Detention Goal (LTG) Delicia is able to tolerate dynamic lumbar and SIJ stabilization exercises and is Ind with a HEP LTG Duration 8 weeks 1 Impairment Left sided SIJ pain that is worse with walking more than 1 mile and with sitting greater than a hour. Pain is rated 3-5/10 with pain increasing to a 7 after walking or hiking Outside Machinist Helper Goal (LTG) Delicia reports a overall reduction in SIJ pain and is able to increase her walking and hiking distance to 2 miles or more without pain LTG Duration 8 weeks Assessment Summary Assessment Delicia is a 64 year old female referred to PT with chronic complaints of left sided SI pain and tightness. Her pain worsens with walking greater than 1 mile and with sitting. Her pain started approx 20 years ago after a long 3 day hike. She describes the pain as mild currently but it can elevate to 7/10 pain if she pushes how long she walks or hikes. With exam today Delicia is tender at the left PSIS joint. She has left sided ITB tightness and is inflared on the left. There is a + ASLR test with the right leg with left side SIJ unlocking. There is tightness in the QL and lumbar paraspinals on the left. She tests weak in the left hip abductors and left hip ER. Delicia is a good candidate for PT for SI joint stabilization and manual therapy techniques to stabilize the SIJ. She was shown stabilization and stretching exercises today and tolerated this well. Physical Therapy Plan Frequency and Duration Frequency of Treatment 1x/Week Duration of treatment (weeks) 8 Plan of Care Start Date 04/09/24 Plan of Care End Date 06/04/24 Therapeutic Interventions Therapeutic Interventions Home Exercise Program,Manual Therapy,Neuromuscular Re- education,Patient/Caregiver Education,Self-Care/Home Management,Soft Tissue Mobilization,Therapeutic Exercises Next Visit Focus/Plan Next Note Type Treatment Note Next Visit Plan Progress core stabilization, recheck inflare next visit and sacral position
--- NOTE | 2024-04-09 18:43 | PT.OPPOC ---
Physical, Occupational & Speech Therapy At [facility] Current Diagnoses Other chronic pain (04/14/24) Spinal instabilities, sacral and sacrococcygeal region (04/14/24) Low back pain, unspecified (04/14/24) Weakness (04/14/24) Visit Care Team Role Provider Type MARLY Mckinley Attending Provider Advanced Hand Profiler Family Provider Primary Care Provider Referring Provider Specialty: Family Practice Address: [address] [place] [address], [facility] Email: [email or web address] Plan Of Care PT-OP-T Assessment and Plan Start: 04/09/24 13:49 Freq: Status: Active Protocol: Document 04/09/24 14:30 [facility] (Rec: 04/14/24 16:39 [facility] [id number]) Physical Therapy Assessment Rehab Potential Rehabilitation Potential Excellent Evaluation Complexity Number of Personal Factors/Comorbidities 0 Number of Body Systems Impaired 1-2 Clinical Presentation at Evaluation Stable Impairments Impairments Activity Tolerance,Functional Activities,Pain,Soft Tissue Mobility,Strength,Tone Goals 3 Impairment Tightness of the left ITB and iliopsoas muscle with + min test on the left Short Term Goal (STG) Delicia is educated in stretches for the hip to reduce tone in the ITB and iliopsoas hip muscles. STG Duration 4 weeks Quality Assurance Technician Goal (LTG) Delicia presents with improved length of the ITB and iliopsoas and has a negative min test LTG Duration 8 weeks 2 Impairment Decreased core strength with SIJ instability Short Term Goal (STG) ASLR test on the right is negative Senior Living Goal (LTG) Delicia is able to tolerate dynamic lumbar and SIJ stabilization exercises and is Ind with a HEP LTG Duration 8 weeks 1 Impairment Left sided SIJ pain that is worse with walking more than 1 mile and with sitting greater than a hour. Pain is rated 3-5/10 with pain increasing to a 7 after walking or hiking Quality Assurance Technician Goal (LTG) Delicia reports a overall reduction in SIJ pain and is able to increase her walking and hiking distance to 2 miles or more without pain LTG Duration 8 weeks Assessment Summary Assessment Delicia is a 64 year old female referred to PT with chronic complaints of left sided SI pain and tightness. Her pain worsens with walking greater than 1 mile and with sitting. Her pain started approx 20 years ago after a long 3 day hike. She describes the pain as mild currently but it can elevate to 7/10 pain if she pushes how long she walks or hikes. With exam today Delicia is tender at the left PSIS joint. She has left sided ITB tightness and is inflared on the left. There is a + ASLR test with the right leg with left side SIJ unlocking. There is tightness in the QL and lumbar paraspinals on the left. She tests weak in the left hip abductors and left hip ER. Delicia is a good candidate for PT for SI joint stabilization and manual therapy techniques to stabilize the SIJ. She was shown stabilization and stretching exercises today and tolerated this well. Physical Therapy Plan Frequency and Duration Frequency of Treatment 1x/Week Duration of treatment (weeks) 8 Plan of Care Start Date 04/09/24 Plan of Care End Date 06/04/24 Therapeutic Interventions Therapeutic Interventions Home Exercise Program,Manual Therapy,Neuromuscular Re- education,Patient/Caregiver Education,Self-Care/Home Management,Soft Tissue Mobilization,Therapeutic Exercises Next Visit Focus/Plan Next Note Type Treatment Note Next Visit Plan Progress core stabilization, recheck inflare next visit and sacral position Plan of Care Dates Plan of Care Start Date 04/09/24 Plan of Care End Date 06/04/24 Electronically Signed by: Rhianna Fletcher, PT 04/14/24 0897 If you are in agreement with this Plan of Care, please return a signed and dated copy. I have reviewed this Plan of Care and certify that the skilled therapy services above are required to meet the patient?s needs. Physician Signature Date Printed Name and Credentials Clinical Instructor Signature Printed Name and Credentials
--- NOTE | 2024-04-14 19:06 | PT.OTN ---
Current Diagnoses Other chronic pain (04/14/24) Spinal instabilities, sacral and sacrococcygeal region (04/14/24) Low back pain, unspecified (04/14/24) Weakness (04/14/24) Physical Therapy Treatment Note PT-OP-A Visit Information Start: 04/09/24 13:49 Freq: Status: Active Protocol: Document 04/14/24 13:45 [facility] (Rec: 04/14/24 19:00 [facility] [id number]) Out-Patient Physical Therapy Visit Information Visit Information Visit Type Treatment Note Visit Start Time 13:45 Visit Stop Time 14:30 Visit Number 2 PT-OP-B Current Condition Start: 04/09/24 13:49 Freq: Status: Active Protocol: Document 04/09/24 14:30 [facility] (Rec: 04/09/24 15:16 [facility] [id number]) Current Condition History of Current Condition Onset Date 20 years ago Current Complaints Left sided SI pain History of Current Condition over 20 years ago after a 3 day hike Delicia started experiencing left SI joint pain. She notes she started PT and was told she had a elevated left pelvis, she has had chronic pain since this time. Delicia notes she does do piriforms stretches and yoga stretches and she finds there are times when the pain won't go away. Sitting cross legged she knows aggravates her pain. She gardens, walks, does yoga, she has a dark room where she is standing. Treatment Goals Patient/Caregiver Goals goals include reducing pain allowing her to walk longer than a mile painfree and continue with her hiking Current Functional Impairments (Reported) Functional Limitations- Mobility/Gait pain with greater than 1 mile, pain increases with sitting Functional Limitations- Recreation/ hiking is limited due to pain Hobbies PT-OP-C Subjective Start: 04/09/24 13:49 Freq: Status: Active Protocol: Document 04/14/24 13:45 [facility] (Rec: 04/14/24 19:00 [facility] [id number]) OP-PT Subjective Patient Comments Patient Comments Delicia reports she has been doing her exercises and she did feel she stretched too much with jesusita pose as she was sore afterwards PT-OP-F Manual Assessment Start: 04/09/24 13:49 Freq: Status: Active Protocol: Document 04/09/24 13:45 [facility] (Rec: 04/14/24 18:34 [facility] [id number]) Manual Assessments Soft Tissue Assessment Soft Tissue Mobility Assessment left sided ITB tightness, iliopsoas tighness with + min test left sided QL and paraspinal tightness Joint Mobility Assessment Joint Mobility Assessment SIJ instability with + ASLR test R inflare left innominant PT-OP-J Posture/Palpation/Skin Start: 04/09/24 13:49 Freq: Status: Active Protocol: Document 04/09/24 13:45 [facility] (Rec: 04/14/24 18:34 [facility] [id number]) Palpation Assessment Location Left PSIS Palpation Findings Tenderness PT-OP-K Range of Motion Start: 04/09/24 13:49 Freq: Status: Active Protocol: Document 04/09/24 13:45 [facility] (Rec: 04/14/24 18:34 [facility] [id number]) Lumbar Spine Range of Motion Lumbar Spine Active Testing Position Standing Lateral Flexion Left 10 Lateral Flexion Right 15 ROM Limitations Soft Tissue Tightness PT-OP-M Strength Start: 04/09/24 13:49 Freq: Status: Active Protocol: Document 04/09/24 14:30 [facility] (Rec: 04/14/24 18:35 [facility] [id number]) Trunk Strength Trunk Manual Muscle Testing Flexion 3+ Fair+ Core Stabilization Decreased inner core stabilzation with + ASLR test on R Decreased TA stabilization PT-OP-Q Treatments Start: 04/09/24 13:49 Freq: Status: Active Protocol: Document 04/14/24 13:45 [facility] (Rec: 04/14/24 19:05 [facility] [id number]) Therapeutic Exercises Supine Exercises TA with heel slides Side bilateral Reps/Minutes x 10 reps supine marches Reps/Minutes x 20 only right side knee to chest then pull across body Side bilateral Reps/Minutes hold 30 sec each side single knee to chest Side bilateral Reps/Minutes hold 30 sec each side Sidelying Exercises clam shells Reps/Minutes 3x 10 reps PT-OP-T Assessment and Plan Start: 04/09/24 13:49 Freq: Status: Active Protocol: Document 04/14/24 13:45 [facility] (Rec: 04/14/24 19:00 [facility] [id number]) Physical Therapy Assessment Assessment Summary Assessment I worked on MET to correct the inflare today and ITB/ iliopsoas stretching. Delicia tolerated well and She was able to increase her stabilization exercises. Supine march with TA does aggravate her left SI so I modified to SLR and heel slide on the left. Bridges with ball squeeze pt needs cues to move through segmental lumbar movement move through her spine Physical Therapy Plan Frequency and Duration Frequency of Treatment 1x/Week Duration of treatment (weeks) 8 Plan of Care Start Date 04/09/24 Plan of Care End Date 06/04/24 Therapeutic Interventions Therapeutic Interventions Home Exercise Program,Manual Therapy,Neuromuscular Re- education,Patient/Caregiver Education,Self-Care/Home Management,Soft Tissue Mobilization,Therapeutic Exercises Next Visit Focus/Plan Next Note Type Treatment Note Next Visit Plan Progress core stabilization, recheck inflare next visit and sacral position
--- NOTE | 2024-04-16 12:31 | PT-OP ANOTE ---
Pt called <24 hrs cancellation today's PT visit per [employer]ah[employer]ger wants her to follow up today visit from after ER visit on 04/07.
--- NOTE | 2024-04-21 13:46 | PT.OTN ---
Current Diagnoses Other chronic pain (04/21/24) Spinal instabilities, sacral and sacrococcygeal region (04/21/24) Low back pain, unspecified (04/21/24) Weakness (04/21/24) Physical Therapy Treatment Note PT-OP-A Visit Information Start: 04/09/24 13:49 Freq: Status: Active Protocol: Document 04/21/24 13:02 SP (Rec: 04/21/24 13:51 SP [id number]) Out-Patient Physical Therapy Visit Information Visit Information Visit Type Treatment Note Visit Start Time 13:02 Visit Stop Time 13:46 Visit Number 3 Number of GIS MAPPING TECHNICIAN Visits 1 Evaluation Information Evaluation Date 04/09/24 PT-OP-B Current Condition Start: 04/09/24 13:49 Freq: Status: Active Protocol: Document 04/09/24 14:30 AMH (Rec: 04/09/24 15:16 AMH [id number]) Current Condition History of Current Condition Onset Date 20 years ago Current Complaints Left sided SI pain History of Current Condition over 20 years ago after a 3 day hike Delicia started experiencing left SI joint pain. She notes she started PT and was told she had a elevated left pelvis, she has had chronic pain since this time. Delicia notes she does do piriforms stretches and yoga stretches and she finds there are times when the pain won't go away. Sitting cross legged she knows aggravates her pain. She gardens, walks, does yoga, she has a dark room where she is standing. Treatment Goals Patient/Caregiver Goals goals include reducing pain allowing her to walk longer than a mile painfree and continue with her hiking Current Functional Impairments (Reported) Functional Limitations- Mobility/Gait pain with greater than 1 mile, pain increases with sitting Functional Limitations- Recreation/ hiking is limited due to pain Hobbies PT-OP-C Subjective Start: 04/09/24 13:49 Freq: Status: Active Protocol: Document 04/21/24 13:02 SP (Rec: 04/21/24 13:51 SP [id number]) OP-PT Subjective Patient Comments Patient Comments Pt reports has had heart palpitations pre ER visit (Prior to start PT, forgot tell PT at eveal) and saw telecom specialist last week, told having some misfiring, pt didn't ask if should hold off on PT due to not doing anything to strenous at tx. Staffing Analyst is ordering: EKG and stress testing. GIS MAPPING TECHNICIAN suggested calling telecom specialist and ask if PT should be mindful of activities. PT-OP-F Manual Assessment Start: 04/09/24 13:49 Freq: Status: Active Protocol: Document 04/09/24 13:45 AMH (Rec: 04/14/24 18:34 AMH [id number]) Manual Assessments Soft Tissue Assessment Soft Tissue Mobility Assessment left sided ITB tightness, iliopsoas tighness with + min test left sided QL and paraspinal tightness Joint Mobility Assessment Joint Mobility Assessment SIJ instability with + ASLR test R inflare left innominant PT-OP-J Posture/Palpation/Skin Start: 04/09/24 13:49 Freq: Status: Active Protocol: Document 04/09/24 13:45 AMH (Rec: 04/14/24 18:34 AMH [id number]) Palpation Assessment Location Left PSIS Palpation Findings Tenderness PT-OP-K Range of Motion Start: 04/09/24 13:49 Freq: Status: Active Protocol: Document 04/09/24 13:45 AMH (Rec: 04/14/24 18:34 AMH [id number]) Lumbar Spine Range of Motion Lumbar Spine Active Testing Position Standing Lateral Flexion Left 10 Lateral Flexion Right 15 ROM Limitations Soft Tissue Tightness PT-OP-M Strength Start: 04/09/24 13:49 Freq: Status: Active Protocol: Document 04/09/24 14:30 AMH (Rec: 04/14/24 18:35 AMH [id number]) Trunk Strength Trunk Manual Muscle Testing Flexion 3+ Fair+ Core Stabilization Decreased inner core stabilzation with + ASLR test on R Decreased TA stabilization PT-OP-Q Treatments Start: 04/09/24 13:49 Freq: Status: Active Protocol: Document 04/21/24 13:02 SP (Rec: 04/21/24 13:51 SP [id number]) Therapeutic Exercises Supine Exercises self pelvic alignment reset Supine Exercise Name 90/90 isometric flex/ext, abd/ add strap & ball Side bilateral Reps/Minutes 5 SH x3 reps each Comments good response, painfree, slow gentle pressure cues Sidelying Exercises clam shells Reps/Minutes 3x 10 reps Comments good pnfree Manual Therapy Treatment Manual Techniques MET for left inflare Type inflare and Ant Rot ilium ASIS Body Position Hooklying Reps/Duration 5SH x3 reps Comments abd isometric abd, ext: manual then use strap and dowel for self home ed self Gregor: isometric abd strap, add ball, hip ext/flex /c dowel left sacral LIZ posterior PA glides Body Position Prone Comments worked on posterior glides of the left sacral. Self-Care/Home Management Treatment Education Patient Education Body Mechanics,Joint Protection,Pain Management, Posture Other Education Ed side vs supine sleeping use pillows: under thighs supine; side: behind back, side under ribcage between knees PT-OP-T Assessment and Plan Start: 04/09/24 13:49 Freq: Status: Active Protocol: Document 04/21/24 13:02 SP (Rec: 04/21/24 13:51 SP [id number]) Physical Therapy Assessment Goals 3 Impairment Tightness of the left ITB and iliopsoas muscle with + min test on the left Short Term Goal (STG) Delicia is educated in stretches for the hip to reduce tone in the ITB and iliopsoas hip muscles. STG Duration 4 weeks Mcc Goal (LTG) Delicia presents with improved length of the ITB and iliopsoas and has a negative min test LTG Duration 8 weeks 2 Impairment Decreased core strength with SIJ instability Short Term Goal (STG) ASLR test on the right is negative Mcc Goal (LTG) Delicia is able to tolerate dynamic lumbar and SIJ stabilization exercises and is Ind with a HEP LTG Duration 8 weeks 1 Impairment Left sided SIJ pain that is worse with walking more than 1 mile and with sitting greater than a hour. Pain is rated 3-5/10 with pain increasing to a 7 after walking or hiking Mcc Goal (LTG) Delicia reports a overall reduction in SIJ pain and is able to increase her walking and hiking distance to 2 miles or more without pain LTG Duration 8 weeks Assessment Summary Assessment Pt responded well to manual. Initiated self pelvic realignment using dowel with ed gentle pressure with good response. Cued TA draw and slow AROM in during initiated clamshells with improved pelvic stability and tiring response. Time spent use of pillows side and supine for back and pelvic alignmetn with response no pain, very comforting. Provided HOs for recall, declined for sleep positioning due to good understanding carryover. Physical Therapy Plan Frequency and Duration Frequency of Treatment 1x/Week Duration of treatment (weeks) 8 Plan of Care Start Date 04/09/24 Plan of Care End Date 06/04/24 Therapeutic Interventions Therapeutic Interventions Home Exercise Program,Manual Therapy,Neuromuscular Re- education,Patient/Caregiver Education,Self-Care/Home Management,Soft Tissue Mobilization,Therapeutic Exercises Next Visit Focus/Plan Next Note Type Treatment Note Next Visit Plan Assess response to manual, pelvic realignment and hip abd strengthening. POC: Progress core stabilization, recheck inflare next visit and sacral position
--- NOTE | 2024-05-04 14:35 | PT.OTN ---
Current Diagnoses Other chronic pain (05/04/24) Spinal instabilities, sacral and sacrococcygeal region (05/04/24) Low back pain, unspecified (05/04/24) Weakness (05/04/24) Physical Therapy Treatment Note PT-OP-A Visit Information Start: 04/09/24 13:49 Freq: Status: Active Protocol: Document 05/04/24 13:46 SP (Rec: 05/04/24 14:38 SP [id number]) Out-Patient Physical Therapy Visit Information Visit Information Visit Type Treatment Note Visit Start Time 13:46 Visit Stop Time 14:35 Visit Number 4 Number of WOODYARD CRANE OPERATOR Visits 2 Evaluation Information Evaluation Date 04/09/24 PT-OP-B Current Condition Start: 04/09/24 13:49 Freq: Status: Active Protocol: Document 04/09/24 14:30 AMH (Rec: 04/09/24 15:16 AMH [id number]) Current Condition History of Current Condition Onset Date 20 years ago Current Complaints Left sided SI pain History of Current Condition over 20 years ago after a 3 day hike Delicia started experiencing left SI joint pain. She notes she started PT and was told she had a elevated left pelvis, she has had chronic pain since this time. Delicia notes she does do piriforms stretches and yoga stretches and she finds there are times when the pain won't go away. Sitting cross legged she knows aggravates her pain. She gardens, walks, does yoga, she has a dark room where she is standing. Treatment Goals Patient/Caregiver Goals goals include reducing pain allowing her to walk longer than a mile painfree and continue with her hiking Current Functional Impairments (Reported) Functional Limitations- Mobility/Gait pain with greater than 1 mile, pain increases with sitting Functional Limitations- Recreation/ hiking is limited due to pain Hobbies PT-OP-C Subjective Start: 04/09/24 13:49 Freq: Status: Active Protocol: Document 05/04/24 13:46 SP (Rec: 05/04/24 14:38 SP [id number]) OP-PT Subjective Patient Comments Patient Comments Pt reports 2-3/10 pain over R SI area. SHe mentioned unable to do SKTC then move L knee over R leg,causes pain and unable to do this range. PT-OP-F Manual Assessment Start: 04/09/24 13:49 Freq: Status: Active Protocol: Document 04/09/24 13:45 AMH (Rec: 04/14/24 18:34 AMH [id number]) Manual Assessments Soft Tissue Assessment Soft Tissue Mobility Assessment left sided ITB tightness, iliopsoas tighness with + min test left sided QL and paraspinal tightness Joint Mobility Assessment Joint Mobility Assessment SIJ instability with + ASLR test R inflare left innominant PT-OP-J Posture/Palpation/Skin Start: 04/09/24 13:49 Freq: Status: Active Protocol: Document 04/09/24 13:45 AMH (Rec: 04/14/24 18:34 AMH [id number]) Palpation Assessment Location Left PSIS Palpation Findings Tenderness PT-OP-K Range of Motion Start: 04/09/24 13:49 Freq: Status: Active Protocol: Document 04/09/24 13:45 AMH (Rec: 04/14/24 18:34 AMH [id number]) Lumbar Spine Range of Motion Lumbar Spine Active Testing Position Standing Lateral Flexion Left 10 Lateral Flexion Right 15 ROM Limitations Soft Tissue Tightness PT-OP-M Strength Start: 04/09/24 13:49 Freq: Status: Active Protocol: Document 04/09/24 14:30 AMH (Rec: 04/14/24 18:35 AMH [id number]) Trunk Strength Trunk Manual Muscle Testing Flexion 3+ Fair+ Core Stabilization Decreased inner core stabilzation with + ASLR test on R Decreased TA stabilization PT-OP-Q Treatments Start: 04/09/24 13:49 Freq: Status: Active Protocol: Document 05/04/24 13:46 SP (Rec: 05/04/24 14:38 SP [id number]) Therapeutic Exercises Supine Exercises Segmental bridge /c hip add isometric Supine Exercise Name 1. adduction 2. add /c bridge rol up/down Reps/Minutes 1. 5 Sh x5 2. x10 reps Comments cued slow segmental pelvic PPT up, LS roll down, TA, TA with heel slides Side bilateral Reps/Minutes x 10 reps Comments occ cue level pelvis supine marches Supine Exercise Name 1. single january 2. segmental DL lift/lower march Reps/Minutes 1. 5 reps 2. 5 reps each side- reported better challenge tiring Comments pnfree, cues for sequencing DL lift/lower supine hip roll outs with theraband Supine Exercise Name Hip abd Equipment Used level 3 TB Reps/Minutes 2 x 10 reps Comments good tiring Sidelying Exercises clam shells Side bilateral Resistance AROM> TB #1 at thighs Reps/Minutes 2x 10 reps Comments Improved PPT/ DELIVERY ROOM CLERK /c TA stable pelvis, occ cues slower lift & lower Manual Therapy Treatment Manual Techniques MET for left inflare Type R out flare, L inflare Body Position Hooklying Reps/Duration 5SH x3 reps Comments L abd isometric, R adduction isometric- 1 rep manual, 2 reps use ball and strap around thighs PT-OP-T Assessment and Plan Start: 04/09/24 13:49 Freq: Status: Active Protocol: Document 05/04/24 13:46 SP (Rec: 05/04/24 14:38 SP [id number]) Physical Therapy Assessment Goals 3 Impairment Tightness of the left ITB and iliopsoas muscle with + min test on the left Short Term Goal (STG) Delicia is educated in stretches for the hip to reduce tone in the ITB and iliopsoas hip muscles. STG Duration 4 weeks Jail Goal (LTG) Delicia presents with improved length of the ITB and iliopsoas and has a negative min test LTG Duration 8 weeks 2 Impairment Decreased core strength with SIJ instability Short Term Goal (STG) ASLR test on the right is negative Pinball Machine Repairer Goal (LTG) Delicia is able to tolerate dynamic lumbar and SIJ stabilization exercises and is Ind with a HEP LTG Duration 8 weeks 1 Impairment Left sided SIJ pain that is worse with walking more than 1 mile and with sitting greater than a hour. Pain is rated 3-5/10 with pain increasing to a 7 after walking or hiking Jail Goal (LTG) Delicia reports a overall reduction in SIJ pain and is able to increase her walking and hiking distance to 2 miles or more without pain LTG Duration 8 weeks Assessment Summary Assessment Pt self correction with use ball and strap for ilium flare . Improved TA and neutral pelvis during ther ex review with added resistance felt more stable engagement. Physical Therapy Plan Frequency and Duration Frequency of Treatment 1x/Week Duration of treatment (weeks) 8 Plan of Care Start Date 04/09/24 Plan of Care End Date 06/04/24 Therapeutic Interventions Therapeutic Interventions Home Exercise Program,Manual Therapy,Neuromuscular Re- education,Patient/Caregiver Education,Self-Care/Home Management,Soft Tissue Mobilization,Therapeutic Exercises Next Visit Focus/Plan Next Note Type Treatment Note Next Visit Plan Assess response to manual, added resistance to HEP. POC: Progress core stabilization, recheck inflare next visit and sacral position
--- NOTE | 2024-05-13 11:37 | PT.OPPOC ---
Physical, Occupational & Speech Therapy At [facility] Current Diagnoses Other chronic pain (05/04/24) Spinal instabilities, sacral and sacrococcygeal region (05/04/24) Low back pain, unspecified (05/04/24) Weakness (05/04/24) Visit Care Team Role Provider Type MARLY Mckinley Attending Provider Advanced Branch Administrator Family Provider Primary Care Provider Referring Provider Specialty: Family Practice Address: [address] [place] [address], [facility] Email: [email or web address] Plan Of Care PT-OP-T Assessment and Plan Start: 04/09/24 13:49 Freq: Status: Active Protocol: Document 05/04/24 13:46 SP (Rec: 05/04/24 14:38 SP [id number]) Physical Therapy Assessment Goals 3 Impairment Tightness of the left ITB and iliopsoas muscle with + min test on the left Short Term Goal (STG) Delicia is educated in stretches for the hip to reduce tone in the ITB and iliopsoas hip muscles. STG Duration 4 weeks Card Boxer Goal (LTG) Delicia presents with improved length of the ITB and iliopsoas and has a negative min test LTG Duration 8 weeks 2 Impairment Decreased core strength with SIJ instability Short Term Goal (STG) ASLR test on the right is negative Retirement Goal (LTG) Delicia is able to tolerate dynamic lumbar and SIJ stabilization exercises and is Ind with a HEP LTG Duration 8 weeks 1 Impairment Left sided SIJ pain that is worse with walking more than 1 mile and with sitting greater than a hour. Pain is rated 3-5/10 with pain increasing to a 7 after walking or hiking Retirement Goal (LTG) Delicia reports a overall reduction in SIJ pain and is able to increase her walking and hiking distance to 2 miles or more without pain LTG Duration 8 weeks Assessment Summary Assessment Pt self correction with use ball and strap for ilium flare . Improved TA and neutral pelvis during ther ex review with added resistance felt more stable engagement. Physical Therapy Plan Frequency and Duration Frequency of Treatment 1x/Week Duration of treatment (weeks) 8 Plan of Care Start Date 04/09/24 Plan of Care End Date 06/04/24 Therapeutic Interventions Therapeutic Interventions Home Exercise Program,Manual Therapy,Neuromuscular Re- education,Patient/Caregiver Education,Self-Care/Home Management,Soft Tissue Mobilization,Therapeutic Exercises Next Visit Focus/Plan Next Note Type Treatment Note Next Visit Plan Assess response to manual, added resistance to HEP. POC: Progress core stabilization, recheck inflare next visit and sacral position Plan of Care Dates Plan of Care Start Date 04/09/24 Plan of Care End Date 06/04/24 Electronically Signed by: Rhianna Fletcher, PT 05/13/24 [id number] If you are in agreement with this Plan of Care, please return a signed and dated copy. I have reviewed this Plan of Care and certify that the skilled therapy services above are required to meet the patient?s needs. Physician Signature Date Printed Name and Credentials Clinical Instructor Signature Printed Name and Credentials
--- NOTE | 2024-05-14 14:32 | PT.OTN ---
Current Diagnoses Other chronic pain (05/14/24) Spinal instabilities, sacral and sacrococcygeal region (05/14/24) Low back pain, unspecified (05/14/24) Weakness (05/14/24) Physical Therapy Treatment Note PT-OP-A Visit Information Start: 04/09/24 13:49 Freq: Status: Active Protocol: Document 05/14/24 13:49 SP (Rec: 05/14/24 14:38 SP [id number]) Out-Patient Physical Therapy Visit Information Visit Information Visit Type Treatment Note Visit Note 5/6 approved appts, awaiting pending approval more visits. Visit Start Time 13:49 Visit Stop Time 14:32 Visit Number 5 Number of BALCONY WORKER Visits 3 Evaluation Information Evaluation Date 04/09/24 PT-OP-B Current Condition Start: 04/09/24 13:49 Freq: Status: Active Protocol: Document 04/09/24 14:30 [facility] (Rec: 04/09/24 15:16 [facility] [id number]) Current Condition History of Current Condition Onset Date 20 years ago Current Complaints Left sided SI pain History of Current Condition over 20 years ago after a 3 day hike Delicia started experiencing left SI joint pain. She notes she started PT and was told she had a elevated left pelvis, she has had chronic pain since this time. Delicia notes she does do piriforms stretches and yoga stretches and she finds there are times when the pain won't go away. Sitting cross legged she knows aggravates her pain. She gardens, walks, does yoga, she has a dark room where she is standing. Treatment Goals Patient/Caregiver Goals goals include reducing pain allowing her to walk longer than a mile painfree and continue with her hiking Current Functional Impairments (Reported) Functional Limitations- Mobility/Gait pain with greater than 1 mile, pain increases with sitting Functional Limitations- Recreation/ hiking is limited due to pain Hobbies PT-OP-C Subjective Start: 04/09/24 13:49 Freq: Status: Active Protocol: Document 05/14/24 13:49 SP (Rec: 05/14/24 14:38 SP [id number]) OP-PT Subjective Patient Comments Patient Comments Pt reports felt like a work out tiring. Tried the modified KTC and bring knee over opposite LE and caused back pain so stopped it. PT-OP-F Manual Assessment Start: 04/09/24 13:49 Freq: Status: Active Protocol: Document 04/09/24 13:45 [facility] (Rec: 04/14/24 18:34 [facility] [id number]) Manual Assessments Soft Tissue Assessment Soft Tissue Mobility Assessment left sided ITB tightness, iliopsoas tighness with + min test left sided QL and paraspinal tightness Joint Mobility Assessment Joint Mobility Assessment SIJ instability with + ASLR test R inflare left innominant PT-OP-J Posture/Palpation/Skin Start: 04/09/24 13:49 Freq: Status: Active Protocol: Document 04/09/24 13:45 [facility] (Rec: 04/14/24 18:34 [facility] [id number]) Palpation Assessment Location Left PSIS Palpation Findings Tenderness PT-OP-K Range of Motion Start: 04/09/24 13:49 Freq: Status: Active Protocol: Document 04/09/24 13:45 [facility] (Rec: 04/14/24 18:34 [facility] [id number]) Lumbar Spine Range of Motion Lumbar Spine Active Testing Position Standing Lateral Flexion Left 10 Lateral Flexion Right 15 ROM Limitations Soft Tissue Tightness PT-OP-M Strength Start: 04/09/24 13:49 Freq: Status: Active Protocol: Document 04/09/24 14:30 [facility] (Rec: 04/14/24 18:35 [facility] [id number]) Trunk Strength Trunk Manual Muscle Testing Flexion 3+ Fair+ Core Stabilization Decreased inner core stabilzation with + ASLR test on R Decreased TA stabilization PT-OP-Q Treatments Start: 04/09/24 13:49 Freq: Status: Active Protocol: Document 05/14/24 13:49 SP (Rec: 05/14/24 14:38 SP [id number]) Therapeutic Exercises Supine Exercises Segmental bridge /c hip add isometric Supine Exercise Name 1. adduction 2. add /c bridge rol up/down Reps/Minutes 1. 5 Sh x5 2. x10 reps Comments cued slow segmental pelvic PPT up, LS roll down, TA, TA with heel slides Supine Exercise Name easy can DC Side bilateral Reps/Minutes x 10 reps Comments good form supine marches Supine Exercise Name 1. single january alternate 2. segmental DL lift/lower march Equipment Used HEP just DL sequencial march Reps/Minutes 1. 5 reps 2. 5 reps each side- reported better challenge tiring Comments pnfree, cues for sequencing DL lift/lower /c TA draw in-no LBP supine hip roll outs with theraband Supine Exercise Name Hip abd- progressed single leg at time alternating Equipment Used level 3 TB Reps/Minutes 2 x 10 reps Comments good tiring, cued level pelvis , slow pacing range effort knee to chest then pull across body Supine Exercise Name Caused back pain over opp LE, discussed just KTC Side left Reps/Minutes 60 SH. single knee to chest Side bilateral Reps/Minutes hold 30 sec each side Comments feels good hip/low back stretch Sidelying Exercises clam shells Side bilateral Resistance TB #1 at thighs Reps/Minutes 2x 10 reps Comments Improved PPT/ RISK PROFESSIONAL /c TA stable pelvis, occ cues slower lift & lower Sitting Exercises sidebending to the right Sitting Exercise Name verbal review- R SB Side left Reps/Minutes hold 30 sec 2-3 reps Comments Good stretch left side body Standing Exercises TA shld ext Standing Exercise Name added to HEP Side bilateral Resistance TB #1 light blue Reps/Minutes x10 Comments cued soft knee, PPT, TA draw in, open chest with pull back for spinal align Other Exercises bird dog Other Exercise Name added to HEP Side bilateral Resistance alternate AROM Reps/Minutes 5 reps Comments cued slow, reach lift, level pelvis MET Other Exercise Name L ilium PPT> resisted hip flexion Side left Reps/Minutes 10 SH x5 reps Comments relieved L LB pain. Manual Therapy Treatment Soft Tissue Mobilization Low back Body Location L QL, paraspinal, rib recoil with breath exhale Mobilization Type Rolling Intensity/Depth Moderate Body Position R SL Comments gentle STMs, MWM breath L ribcage carie with exhale, allow recoil with inhale- improved mobiltiy, reduction L trunk/LBP. PT-OP-T Assessment and Plan Start: 04/09/24 13:49 Freq: Status: Active Protocol: Document 05/14/24 13:49 SP (Rec: 05/14/24 14:38 SP [id number]) Physical Therapy Assessment Goals 3 Impairment Tightness of the left ITB and iliopsoas muscle with + min test on the left Short Term Goal (STG) Delicia is educated in stretches for the hip to reduce tone in the ITB and iliopsoas hip muscles. STG Duration 4 weeks Intermediate Goal (LTG) Delicia presents with improved length of the ITB and iliopsoas and has a negative min test LTG Duration 8 weeks 2 Impairment Decreased core strength with SIJ instability Short Term Goal (STG) ASLR test on the right is negative Heat Curer Goal (LTG) Delicia is able to tolerate dynamic lumbar and SIJ stabilization exercises and is Ind with a HEP LTG Duration 8 weeks 1 Impairment Left sided SIJ pain that is worse with walking more than 1 mile and with sitting greater than a hour. Pain is rated 3-5/10 with pain increasing to a 7 after walking or hiking Heat Curer Goal (LTG) Delicia reports a overall reduction in SIJ pain and is able to increase her walking and hiking distance to 2 miles or more without pain LTG Duration 8 weeks Assessment Summary Assessment Pt good feedback self under instruction MET to L ilium posterior rotation correction. Reports hold and reps actually stretch back. Max cuing for PPT during most of ther ex for spinal alignment and core recruitment support. TOlerated progression bird dog and resisted shld ext for core strengthening with mobililty, cues for proper form. Physical Therapy Plan Frequency and Duration Frequency of Treatment 1x/Week Duration of treatment (weeks) 8 Plan of Care Start Date 04/09/24 Plan of Care End Date 06/04/24 Therapeutic Interventions Therapeutic Interventions Home Exercise Program,Manual Therapy,Neuromuscular Re- education,Patient/Caregiver Education,Self-Care/Home Management,Soft Tissue Mobilization,Therapeutic Exercises Next Visit Focus/Plan Next Note Type Treatment Note Next Visit Plan *Check have more approved visits. Recheck bird dog, resisted shld ext and previous HEP. Continue recheck inflare each visit and sacral position POC: Progress core stabilization in standing.
--- NOTE | 2024-05-27 14:31 | PT.OTN ---
Current Diagnoses Other chronic pain (05/27/24) Spinal instabilities, sacral and sacrococcygeal region (05/27/24) Low back pain, unspecified (05/27/24) Weakness (05/27/24) Physical Therapy Treatment Note PT-OP-A Visit Information Start: 04/09/24 13:49 Freq: Status: Active Protocol: Document 05/27/24 13:47 SP (Rec: 05/27/24 14:37 SP [id number]) Out-Patient Physical Therapy Visit Information Visit Information Visit Type Treatment Note Visit Note 04/30 used visits. Next tx 06/02/24 will be 2nd set 11/30 visits approved. Visit Start Time 13:47 Visit Stop Time 14:31 Visit Number 6 Number of DIRECTOR OF RESIDENTIAL SERVICES Visits 4 Evaluation Information Evaluation Date 04/09/24 PT-OP-B Current Condition Start: 04/09/24 13:49 Freq: Status: Active Protocol: Document 04/09/24 14:30 [facility] (Rec: 04/09/24 15:16 [facility] [id number]) Current Condition History of Current Condition Onset Date 20 years ago Current Complaints Left sided SI pain History of Current Condition over 20 years ago after a 3 day hike Delicia started experiencing left SI joint pain. She notes she started PT and was told she had a elevated left pelvis, she has had chronic pain since this time. Delicia notes she does do piriforms stretches and yoga stretches and she finds there are times when the pain won't go away. Sitting cross legged she knows aggravates her pain. She gardens, walks, does yoga, she has a dark room where she is standing. Treatment Goals Patient/Caregiver Goals goals include reducing pain allowing her to walk longer than a mile painfree and continue with her hiking Current Functional Impairments (Reported) Functional Limitations- Mobility/Gait pain with greater than 1 mile, pain increases with sitting Functional Limitations- Recreation/ hiking is limited due to pain Hobbies PT-OP-C Subjective Start: 04/09/24 13:49 Freq: Status: Active Protocol: Document 05/27/24 13:47 SP (Rec: 05/27/24 14:37 SP [id number]) OP-PT Subjective Patient Comments Patient Comments Pt reports arrival headache but having less pain frequency , L SI pain 2-3x/day still same 02/01.She woke up with pinch L posterolateral back, but gone now. She arrives level pelvis. PT-OP-F Manual Assessment Start: 04/09/24 13:49 Freq: Status: Active Protocol: Document 04/09/24 13:45 [facility] (Rec: 04/14/24 18:34 [facility] [id number]) Manual Assessments Soft Tissue Assessment Soft Tissue Mobility Assessment left sided ITB tightness, iliopsoas tighness with + faraz test left sided QL and paraspinal tightness Joint Mobility Assessment Joint Mobility Assessment SIJ instability with + ASLR test R inflare left innominant PT-OP-J Posture/Palpation/Skin Start: 04/09/24 13:49 Freq: Status: Active Protocol: Document 04/09/24 13:45 [facility] (Rec: 04/14/24 18:34 [facility] [id number]) Palpation Assessment Location Left PSIS Palpation Findings Tenderness PT-OP-K Range of Motion Start: 04/09/24 13:49 Freq: Status: Active Protocol: Document 04/09/24 13:45 [facility] (Rec: 04/14/24 18:34 [facility] [id number]) Lumbar Spine Range of Motion Lumbar Spine Active Testing Position Standing Lateral Flexion Left 10 Lateral Flexion Right 15 ROM Limitations Soft Tissue Tightness PT-OP-M Strength Start: 04/09/24 13:49 Freq: Status: Active Protocol: Document 04/09/24 14:30 [facility] (Rec: 04/14/24 18:35 [facility] [id number]) Trunk Strength Trunk Manual Muscle Testing Flexion 3+ Fair+ Core Stabilization Decreased inner core stabilzation with + ASLR test on R Decreased TA stabilization PT-OP-Q Treatments Start: 04/09/24 13:49 Freq: Status: Active Protocol: Document 05/27/24 13:47 SP (Rec: 05/27/24 14:37 SP [id number]) Therapeutic Exercises Supine Exercises Segmental bridge /c hip add isometric Supine Exercise Name add /c bridge segmental roll up/down Reps/Minutes x10 reps Comments Good form: segmental pelvic PPT up, LS roll down, TA, supine marches Supine Exercise Name segmental DL lift/lower march Side bilateral Equipment Used HEP just DL sequencial march Reps/Minutes 5 reps lead each LE Comments pnfree, good form, no LBP supine hip roll outs with theraband Supine Exercise Name supine clamshell- single leg out at time Side bilateral Equipment Used level 3 TB at thighs, knees bent Reps/Minutes 2 x 10 reps Comments good level pelvis, slow pacing form single knee to chest Side bilateral Reps/Minutes hold 30 sec each side Comments feels good hip/low back stretch Sidelying Exercises clam shells Side bilateral Resistance TB #1 at thighs Reps/Minutes 2x 10 reps Comments Improved PPT/ LOCKET MAKER /c TA stable pelvis, occ cues slower lift & lower Standing Exercises TA shld ext Standing Exercise Name reviewed HEP Side bilateral Resistance TB #1 light blue Reps/Minutes x10 Comments cued soft knee, PPT, TA draw in, open chest with pull back for spinal align Other Exercises 1/2 kneel Psoas stretch Other Exercise Name arm OH R lateral lean- added toHEP declined HO Side left Reps/Minutes 30 Comments good feedback stretch deeper ant. 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 Manual Therapy Treatment Consent Patient gave verbal consent for manual Yes treatment Soft Tissue Mobilization L psoas & iliacus Body Location L Mobilization Type Sustained Pressure,Trigger Point Release,Other Comments MWM with breath- improved no back tension Low back Body Location L QL, ES Mobilization Type Rolling Intensity/Depth Moderate Body Position R SL Comments gentle STMs & MWM /c breath-- improved no back tension PT-OP-T Assessment and Plan Start: 04/09/24 13:49 Freq: Status: Active Protocol: Document 05/27/24 13:47 SP (Rec: 05/27/24 14:37 SP [id number]) Physical Therapy Assessment Goals 3 Impairment Tightness of the left ITB and iliopsoas muscle with + faraz test on the left Short Term Goal (STG) Delicia is educated in stretches for the hip to reduce tone in the ITB and iliopsoas hip muscles. 05/27/24: Faraz stretch- having 3/10 in Low back. STG Duration 4 weeks Retirement Goal (LTG) Delicia presents with improved length of the ITB and iliopsoas and has a negative faraz test LTG Duration 8 weeks 2 Impairment Decreased core strength with SIJ instability Short Term Goal (STG) ASLR test on the right is negative Retirement Goal (LTG) Delicia is able to tolerate dynamic lumbar and SIJ stabilization exercises and is Ind with a HEP LTG Duration 8 weeks 1 Impairment Left sided SIJ pain that is worse with walking more than 1 mile and with sitting greater than a hour. Pain is rated 3-5/10 with pain increasing to a 7 after walking or hiking Recreation Facility Manager Goal (LTG) Delicia reports a overall reduction in SIJ pain and is able to increase her walking and hiking distance to 2 miles or more without pain 05/27/24: walking 2-3 miles, 1x/ week, inclined/decline, improved. LTG Duration 8 weeks Assessment Summary Assessment Pt improved pelvic alignment at arrival today. HEP reviewed , cues for slower pacing with TA fac during bird dog improved from. Trialed Faraz stretch with 3/10 pain L low back into SI, went away completely after manual to L psoas, QL and superior Glut med, then was able to get good stretch to L lateral trunk 1/ 2 kneel end tx. Pt reports has a psoas tool but hasn't used yet to help tension reduction, will bring in next tx. Physical Therapy Plan Frequency and Duration Frequency of Treatment 1x/Week Duration of treatment (weeks) 8 Plan of Care Start Date 04/09/24 Plan of Care End Date 06/04/24 Therapeutic Interventions Therapeutic Interventions Home Exercise Program,Manual Therapy,Neuromuscular Re- education,Patient/Caregiver Education,Self-Care/Home Management,Soft Tissue Mobilization,Therapeutic Exercises Next Visit Focus/Plan Next Note Type Progress Note Next Visit Plan 1/6 visits starts next visits 06/02/24, need PN/update POC. Continue recheck inflare each visit and sacral position. Recheck standing initiated core. progress as tolerated Continue body mechanics yard work. POC: Progress core stabilization in standing. Manual L psoas, will bring in her tool help self home.
--- NOTE | 2024-06-02 16:52 | PT.OTN ---
Current Diagnoses Other chronic pain (06/02/24) Spinal instabilities, sacral and sacrococcygeal region (06/02/24) Low back pain, unspecified (06/02/24) Weakness (06/02/24) Physical Therapy Treatment Note PT-OP-A Visit Information Start: 04/09/24 13:49 Freq: Status: Active Protocol: Document 06/02/24 11:20 [facility] (Rec: 06/02/24 12:01 [facility] [id number]) Out-Patient Physical Therapy Visit Information Visit Information Visit Type Treatment Note Visit Start Time 11:15 Visit Stop Time 12:00 Visit Number 7 PT-OP-B Current Condition Start: 04/09/24 13:49 Freq: Status: Active Protocol: Document 04/09/24 14:30 [facility] (Rec: 04/09/24 15:16 [facility] [id number]) Current Condition History of Current Condition Onset Date 20 years ago Current Complaints Left sided SI pain History of Current Condition over 20 years ago after a 3 day hike Delicia started experiencing left SI joint pain. She notes she started PT and was told she had a elevated left pelvis, she has had chronic pain since this time. Delicia notes she does do piriforms stretches and yoga stretches and she finds there are times when the pain won't go away. Sitting cross legged she knows aggravates her pain. She gardens, walks, does yoga, she has a dark room where she is standing. Treatment Goals Patient/Caregiver Goals goals include reducing pain allowing her to walk longer than a mile painfree and continue with her hiking Current Functional Impairments (Reported) Functional Limitations- Mobility/Gait pain with greater than 1 mile, pain increases with sitting Functional Limitations- Recreation/ hiking is limited due to pain Hobbies PT-OP-C Subjective Start: 04/09/24 13:49 Freq: Status: Active Protocol: Document 06/02/24 11:20 [facility] (Rec: 06/02/24 12:01 [facility] [id number]) OP-PT Subjective Patient Comments Patient Comments pt notes last week she started feeling less pain, she really likes the sidelying clam shell. She has avoided hiking for now and is being more aware of her stance. She is feeling independent with her HEP and ready to work on her exercises independently PT-OP-F Manual Assessment Start: 04/09/24 13:49 Freq: Status: Active Protocol: Document 04/09/24 13:45 [facility] (Rec: 04/14/24 18:34 [facility] [id number]) Manual Assessments Soft Tissue Assessment Soft Tissue Mobility Assessment left sided ITB tightness, iliopsoas tighness with + min test left sided QL and paraspinal tightness Joint Mobility Assessment Joint Mobility Assessment SIJ instability with + ASLR test R inflare left innominant PT-OP-J Posture/Palpation/Skin Start: 04/09/24 13:49 Freq: Status: Active Protocol: Document 04/09/24 13:45 [facility] (Rec: 04/14/24 18:34 [facility] [id number]) Palpation Assessment Location Left PSIS Palpation Findings Tenderness PT-OP-K Range of Motion Start: 04/09/24 13:49 Freq: Status: Active Protocol: Document 04/09/24 13:45 [facility] (Rec: 04/14/24 18:34 [facility] [id number]) Lumbar Spine Range of Motion Lumbar Spine Active Testing Position Standing Lateral Flexion Left 10 Lateral Flexion Right 15 ROM Limitations Soft Tissue Tightness PT-OP-M Strength Start: 04/09/24 13:49 Freq: Status: Active Protocol: Document 04/09/24 14:30 [facility] (Rec: 04/14/24 18:35 [facility] [id number]) Trunk Strength Trunk Manual Muscle Testing Flexion 3+ Fair+ Core Stabilization Decreased inner core stabilzation with + ASLR test on R Decreased TA stabilization PT-OP-Q Treatments Start: 04/09/24 13:49 Freq: Status: Active Protocol: Document 06/02/24 11:20 [facility] (Rec: 06/02/24 12:01 [facility] [id number]) Therapeutic Exercises Supine Exercises Segmental bridge /c hip add isometric Supine Exercise Name add /c bridge segmental roll up/down Reps/Minutes x10 reps Comments Good form: segmental pelvic PPT up, LS roll down, TA, supine marches Supine Exercise Name segmental DL lift/lower march Side bilateral Equipment Used HEP just DL sequencial march Reps/Minutes 5 reps lead each LE Comments pnfree, good form, no LBP Sidelying Exercises clam shells Side bilateral Resistance TB #1 at thighs Reps/Minutes 2x 10 reps Comments Improved PPT/ DIRECTOR COST /c TA stable pelvis, occ cues slower lift & lower Other Exercises cat cow Reps/Minutes x5 Comments ed incorporate with gardening bird dog Other Exercise Name reviewed HEP Side bilateral Resistance alternate AROM BUE /c BLE Reps/Minutes 5 reps Comments cued slower, TA draw in- improved form, no LB arch PT-OP-T Assessment and Plan Start: 04/09/24 13:49 Freq: Status: Active Protocol: Document 06/02/24 11:20 [facility] (Rec: 06/02/24 12:01 [facility] [id number]) Physical Therapy Assessment Goals 3 Impairment Tightness of the left ITB and iliopsoas muscle with + min test on the left Short Term Goal (STG) Delicia is educated in stretches for the hip to reduce tone in the ITB and iliopsoas hip muscles. 05/27/24: Min stretch- having 3/10 in Low back. STG Duration 4 weeks Wallcovering Hanger Goal (LTG) Delicia presents with improved length of the ITB and iliopsoas and has a negative min test right leg hip extension still causes left SI pinch LTG Duration 8 weeks 2 Impairment Decreased core strength with SIJ instability Short Term Goal (STG) ASLR test on the right is negative GOAL MET Wallcovering Hanger Goal (LTG) Delicia is able to tolerate dynamic lumbar and SIJ stabilization exercises and is Ind with a HEP Delicia has made good progress with this. She still needs to go slow and brace her core before each exercise as her left side is prone to pinching . LTG Duration 8 weeks 1 Impairment Left sided SIJ pain that is worse with walking more than 1 mile and with sitting greater than a hour. Pain is rated 3-5/10 with pain increasing to a 7 after walking or hiking Intermediate Goal (LTG) Delicia reports a overall reduction in SIJ pain and is able to increase her walking and hiking distance to 2 miles or more without pain 05/27/24: walking 2-3 miles, 1x/ week, inclined/decline, improved. LTG Duration 8 weeks Assessment Summary Assessment Delicia presents with improved pelvic alignment. She notes she has felt better with her SI joint and has decreased pain. She still tends to get pinching in the left SI region with right sidebending, standing lumbar flexion and supine right hip flexion. ASLR test is now negative as Delicia is showing improved core stability. She is independent with her home program and will continue working on her exercises. I did also mention using her SI belt with hiking to help keep her stable as well as mentioned prolotherapy to her as it may help give the left SI joint a little more stability should she feel symptoms again in the future. At this point she will be discharged to a [facility] Physical Therapy Plan Discharge Physical Therapy Discharge Reasons No Longer Attending PT Discharge Comments Pt is independent with her HEP at this time and will be discharged.
== END 2024-06-10 08:35 | disposition home or self-care (01) ==
LOC: PHYS 11:15
PROVIDERS: Family Provider Internal Medicine; PCP Internal Medicine; Referring Provider Internal Medicine; Visit Provider Internal Medicine
DX: M54.50 Low back pain, unspecified (principal); G89.29 Other chronic pain; R53.1 Weakness; M53.2X8 Spinal instabilities, sacral and sacrococcygeal region
CPT/HCPCS: 97110; 97140; 97161

== ENCOUNTER → 2024-08-14 11:09 | Outpatient (CLI) | payer OTHER, SELFPAY ==
--- NOTE | 2024-08-14 11:10 | DI.MG.S_ITS ---
BILATERAL DIGITAL SCREENING MAMMOGRAM 3D/2D WITH CAD: 08/14/2024 Comparison is made to exam dated: 05/23/2023 mammogram - [facility]. The breasts are extremely dense, which lowers the sensitivity of mammography (category d />75% glandular tissue). Current study was also evaluated with a Computer Aided Detection (CAD) system. No significant masses, calcifications, or other findings are seen in either breast. There has been no significant interval change. IMPRESSION: NEGATIVE There is no mammographic evidence of malignancy. A 1 year screening mammogram is recommended. Based on the Tyrer Cuzick model (a risk assessment model) the patient's lifetime risk is 10.9% and her 10 year risk is 4.9%. According to the ACR, ACS, and NCCN guidelines, an annual breast MRI exam along with mammogram is recommended if the patient's lifetime risk is 20% or greater. This exam was interpreted at Station ID: [id number]. NOTE: For mammograms, a report in lay terms will be sent to the patient. Approximately 15% of breast malignancies will not be visualized mammographically. In the management of a palpable breast mass, a negative mammogram must not discourage biopsy of a clinically suspicious lesion. Electronically Signed By: Ankit toney/darlin:08/14/2024 14:29:35 letter sent: Normal Exam ACR BI-RADS Category 1: Negative
== END ==
LOC: MAMMO 11:09
PROVIDERS: Family Provider Internal Medicine; PCP Internal Medicine; Referring Provider Internal Medicine; Visit Provider Internal Medicine
DX: Z12.31 Encounter for screening mammogram for malignant neoplasm of breast (principal); R92.343 Mammographic extreme density, bilateral breasts
CPT/HCPCS: 77063; 77067

== ENCOUNTER 2024-11-12 12:51 | Emergency (ER) | payer OTHER, SELFPAY ==
[2024-11-12] VITALS (10 sets, daily range): BP systolic 124–169; BP diastolic 61–99; PULSE 77–120; RESP 14–23; TEMP 36.7–37; O2SAT 98–100; BMI 22.1
--- NOTE | 2024-11-12 13:09 | ED.GENADULT ---
HPI - General Adult General Chief complaint: Chest Pain Stated complaint: palpitations Time Seen by Provider: 11/12/24 13:01 Source: patient Mode of arrival: Ambulatory Limitations: no limitations History of Present Illness HPI narrative: 64-year-old female. Has a history of PSVT. Is on metoprolol. Missed 1 dose of metoprolol several days ago. Came in today for approximately 90 minutes of palpitation, shortness of breath and chest discomfort. She did take her medications this morning. No fevers. She did take her metoprolol this morning. Has never been cardioverted. Related Data Previous Rx's Medication Instructions Recorded meclizine 25 mg tablet 25 mg PO Q8H PRN #100 tabs 03/10/18 amitriptyline 10 mg tablet 0 PO HS #30 tabs 03/11/18 ketorolac 10 mg tablet 10 mg PO Q6H PRN #20 tabs 03/11/18 epinephrine 0.3 mg/0.3 mL 0.3 mg (0.3 mL) IM ONCE PRN 05/27/18 injection, auto-injector (EpiPen anaphylaxis #2 ea 2-Lev) lorazepam 0.5 mg tablet 0.5 mg PO Q8H PRN fear of flying 05/27/18 #15 tabs prednisone 20 mg tablet 20 mg PO DAILY PRN arthralgia #30 09/15/18 tabs montelukast 10 mg tablet 10 mg PO QDAY #30 tabs 11/04/18 (Singulair) Allergies Allergy/AdvReac Type Severity Reaction Status Date / Time Sulfa (Sulfonamide Allergy Severe severe Verified 08/20/22 15:46 Antibiotics) immediate [SULFA (SULFONAMIDE hives ANTIBIOTICS)] rizatriptan Allergy Verified 11/12/24 13:10 Review of Systems Review of Systems ROS Unobtainable: All systems reviewed & are unremarkable except as noted in HPI and below Constitutional Constitutional: Reports system reviewed and no additional complaints, except as documented Cardiovascular Cardiovascular: Reports system reviewed and no additional complaints, except as documented Respiratory Respiratory: Reports system reviewed and no additional complaints, except as documented Patient History Medical History Retinal tear (2014) Chronic headaches GERD (gastroesophageal reflux disease) Hayfever (1960) Vertigo (2014) Surgical History Anesthesia History of excision of mass (2010) Family History Grandmother PSVT (paroxysmal supraventricular tachycardia) Mother Age: 84 Heart disease PSVT (paroxysmal supraventricular tachycardia) Heart palpitations Sister Age: 63 Hypertension Obesity Brother Prediabetes Father Melanoma Grandfather No problems noted. Grandfather No problems noted. Grandmother No problems noted. Social History Smoking Status: Never smoker alcohol intake: never substance use type: does not use Smoking Status: Never smoker alcohol intake frequency: holidays/special occasions only Exam Initial Vital Signs Initial Vital Signs: Vital Signs Temperature 98.6 F 11/12/24 12:51 Pulse Rate 113 H 11/12/24 12:51 Respiratory Rate 22 11/12/24 12:51 Blood Pressure 169/74 H 11/12/24 12:51 Pulse Oximetry 100 11/12/24 12:51 Oxygen Delivery Method Room Air 11/12/24 12:51 Const General: cooperative, comfortable and No ill appearing HENMO Head: normal to inspection and normocephalic Resp Effort & Inspection: normal respiratory effort Auscultation: clear to auscultation bilaterally Cardio Rate: tachycardic Rhythm: regular rhythm Neuro General: patient alert, patient awake, patient oriented x3 and moves all extremities Extrem General: No edema Course Orders Ordered: ED Orders 11/12/24 13:05 Complete Blood Count AUTO DIFF Stat Comprehensive Metabolic Panel Stat Magnesium Stat TSH [Thyroid Stimulating Hormone] Stat Troponin & CK Cardiac Panel Stat 11/12/24 13:12 EKG-12 Lead Stat 11/12/24 13:49 EKG-12 Lead Stat Discontinued Medications Metoprolol Succinate (Metoprolol Er 25 Mg Tablet) 25 mg PO NOW ONE Stop: 11/12/24 13:28 Last Admin: 11/12/24 13:39 Dose: 25 mg Documented By: LILA Vital Signs Vital signs: Vital Signs - 8 hr 11/12/24 12:51 11/12/24 13:01 11/12/24 13:01 Temperature 98.6 F Pulse Rate 113 H 112 H Respiratory Rate 22 Blood Pressure 169/74 H 169/74 H Pulse Oximetry 100 99 Oxygen Delivery Method Room Air 11/12/24 13:30 11/12/24 13:31 11/12/24 13:31 Temperature Pulse Rate 102 H 120 H Respiratory Rate 15 14 Blood Pressure 152/99 H Pulse Oximetry 99 99 Oxygen Delivery Method 11/12/24 13:39 11/12/24 14:00 11/12/24 14:01 Temperature Pulse Rate 113 H 103 H Respiratory Rate 19 Blood Pressure 152/99 H 124/67 Pulse Oximetry 98 Oxygen Delivery Method 11/12/24 14:01 Temperature Pulse Rate 89 Respiratory Rate 20 Blood Pressure Pulse Oximetry 98 Oxygen Delivery Method Medical Decision Making Medical Records Medical records reviewed: Yes I reviewed the patient's medical records. Lab Data Lab results reviewed: Yes I reviewed the patient's lab results. 11/12/24 13:05 11/12/24 13:05 Labs: Lab Results 11/12/24 Range/Units 13:05 WBC 8.0 (4.5-11.0) X10^3/uL RBC 4.75 (4.0-5.2) X10^6/uL Hgb 14.1 (12.0-16.0) g/dL Hct 42.6 (36-46) % MCV 89.8 (80-100) fL MCH 29.8 (26-34) PG MCHC 33.2 (30-36) % RDW 14.5 (11.6-14.8) % Plt Count 230 (150-400) X10^3/uL Neut % (Auto) 65.1 (50-75) % Lymph % (Auto) 28.2 (25-40) % [place] % (Auto) 5.1 (3-14) % Eos % (Auto) 1.2 L (2-4) % Baso % (Auto) 0.4 (0-2) % Neut # (Auto) 5200 (0342-3484) /uL Lymph # (Auto) 2300 (8953-4385) /uL [place] # (Auto) 400 (0-900) /uL Eos # (Auto) 100 (0-450) /uL Baso # (Auto) 0 (0-100) /uL Sodium 138 (137-145) mmol/L Potassium 3.6 (3.4-5.1) mmol/L Chloride 106 (98-107) mmol/L Carbon Dioxide 20 L (22-32) mmol/L BUN 17 (7-17) mg/dL Creatinine 0.97 (0.52-1.04) mg/dL Estimated GFR > 60 (>60) mL/min BUN/Creatinine Ratio 17.5 (6-22) Glucose 98 (80-110) mg/dL Calcium 9.4 (8.4-10.2) mg/dL Magnesium 1.8 (1.6-2.3) mg/dL Total Bilirubin 0.7 (0.2-1.3) mg/dL AST 30 (14-36) IU/L ALT 21 (<35) IU/L Alkaline Phosphatase 63 (38-126) U/L Total Creatine Kinase 78 (30-135) U/L Troponin I < 0.012 (0.01-0.034) ng/mL Total Protein 7.8 (6.3-8.2) g/dL Albumin 4.8 (3.5-5.0) g/dL Globulin 3.0 (1.7-4.1) g/dL Albumin/Globulin Ratio 1.6 (1.0-2.8) TSH 0.785 (0.47-4.68) uIU/mL ECG Data Attestation: I personally reviewed and interpreted this ECG as follows: Interpretation: Sinus tachycardia Ventricular rate 124 Frequent PACs Normal QRS No ST T wave changes MDM Narrative Medical decision making narrative: After an extra dose of metoprolol patient started to have more frequent PACs but her heart rate was less than 100. This eventually became more persistently sinus rhythm. Electrolytes are unremarkable. I did discuss the case with Dr. Mendez on-call for cardiology who agreed that the patient was not in atrial fibrillation was most likely frequent PACs with sinus tachycardia afterwards. Patient states that the 25 mg of metoprolol twice a day does seem to be controlling her symptoms have just been for the past week that her heart rate has been more elevated. Had a discussion with her regarding this. The plan will be for her to take an extra dose of her metoprolol as needed during the day if she feels like she was getting the palpitations. If she finds she was doing this more persistently then she would need to talk with community relations police lieutenant regarding increasing her metoprolol. She ambulate around the emergency department. He was given return precautions and follow-up instructions. She expressed understanding and agreement. Discharge Plan Departure Patient Disposition: Home Clinical Impression: Premature atrial contraction, Sinus tachycardia Instructions: DI for Arrhythmias Activity Restrictions/Additional Instructions: Continue to take all of your medications as directed. Like we discussed if you need to take an extra dose of your metoprolol during the day if you start to have palpitations this can be appropriate. If you finding that you need to do this more persistently you need to follow-up with your community relations police lieutenant. Return to the emergency department for new or worsening symptoms. Prescriptions: No Action meclizine 25 MG tablet 25 mg PO Q8H PRNQty: 100 0RF ketorolac 10 MG tablet 10 mg PO Q6H PRNQty: 20 0RF amitriptyline 10 MG tablet 0 PO HS Qty: 30 1RF lorazepam 0.5 mg tablet 0.5 mg PO Q8H PRN (Reason: fear of flying) Qty: 15 0RF Rx Instructions: Take 1/2-1 prior to flying as needed epinephrine [EpiPen 2-Lev] 0.3 mg/0.3 mL auto-injector 0.3 mg IM ONCE PRN (Reason: anaphylaxis) Qty: 2 0RF prednisone 20 mg tablet 20 mg PO DAILY PRN (Reason: arthralgia) Qty: 30 0RF Rx Instructions: administer with food or milk, do not take with NSAIDS. montelukast [Singulair] 10 mg tablet 10 mg PO QDAY Qty: 30 2RF Referrals: Marisa Payton ARNP [Primary Care Provider] - Stand Alone Forms: Patient Portal/API/Survey
--- NOTE | 2024-11-12 13:12 | EKG_ITS ---
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
[2024-11-12 13:16] LABS: Add Manual Diff / Slide Review NO; Basophils Absolute Auto 0 /uL (0-100); Basophils Percent Auto 0.4 % (0-2); Eosinophils Absolute Auto 100 /uL (0-450); Eosinophils Percent Auto 1.2 % (2-4); Hematocrit 42.6 % (36-46); Hemoglobin 14.1 g/dL (12.0-16.0); Lymphocytes Absolute Auto 2300 /uL (1100-4500); Lymphocytes Percent Auto 28.2 % (25-40); Mean Corpuscular HGB Conc 33.2 % (30-36); Mean Corpuscular Hemoglobin 29.8 PG (26-34); Mean Corpuscular Volume 89.8 fL (80-100); Monocytes Absolute Auto 400 /uL (0-900); Monocytes Percent Auto 5.1 % (3-14); Neutrophils Absolute Auto 5200 /uL (1500-7000); Neutrophils Percent Auto 65.1 % (50-75); Platelet Count 230 X10^3/uL (150-400); Red Blood Cell Count 4.75 X10^6/uL (4.0-5.2); Red Cell Distribution Width 14.5 % (11.6-14.8)
[2024-11-12 13:30] LABS: Alanine Aminotransferase 21 IU/L (<35); Albumin 4.8 g/dL (3.5-5.0); Albumin Globulin Ratio 1.6 (1.0-2.8); Alkaline Phosphatase 63 U/L (38-126); Aspartate Aminotransferase 30 IU/L (14-36); BUN Creatinine Ratio 17.5 (6-22); Bilirubin Total 0.7 mg/dL (0.2-1.3); Blood Urea Nitrogen 17 mg/dL (7-17); Calcium 9.4 mg/dL (8.4-10.2); Carbon Dioxide 20 mmol/L (22-32); Chloride 106 mmol/L (98-107); Creatine Kinase 78 U/L (30-135); Estimated Glomerular Filt Rate > 60 mL/min (>60); Glucose 98 mg/dL (80-110); HEMOLYSIS < 15 (0-50); Magnesium 1.8 mg/dL (1.6-2.3); Potassium 3.6 mmol/L (3.4-5.1); Sodium 138 mmol/L (137-145); Total Protein 7.8 g/dL (6.3-8.2)
--- NOTE | 2024-11-12 13:30 | PC.NURSE ---
On Saturday patient had gall bladder pain and then palpations started. she is having chest pressure and SOB and feeling pounding which is making it hard for her to think. she denies blood thinners
[2024-11-12] MEDS: METOPROLOL ER 25 MG TABLET PO (13:39)
[2024-11-12 13:42] LABS: Troponin I < 0.012 ng/mL (0.01-0.034)
--- NOTE | 2024-11-12 13:56 | EKG_ITS ---
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
[2024-11-12 14:10] LABS: Thyroid Stimulating Hormone 0.785 uIU/mL (0.47-4.68)
--- NOTE | 2024-11-12 15:21 | PC.NURSE ---
Pt ambulated w/o issue. notified.
== END 2024-11-12 15:31 | disposition home or self-care (01) ==
PROVIDERS: Emergency Provider Emergency Medicine; Family Provider Internal Medicine; PCP Internal Medicine
DX: I49.1 Atrial premature depolarization (principal); R00.0 Tachycardia, unspecified
CPT/HCPCS: 36415; 80053; 82550; 83735; 84443; 84484; 85025; 93005; 99284

== ENCOUNTER → 2024-11-13 15:17 | Outpatient (CLI) | payer OTHER, SELFPAY ==
--- NOTE | 2024-11-13 15:18 | DI.CT.S_ITS ---
PROCEDURE: CT ABDOMEN PELVIS W CON INDICATIONS: RUQ PAIN/NAUSEA/HEMANGIOMA/CHOLEDOCHOCELE TECHNIQUE: After the administration of intravenous contrast, axial sections acquired from the lung bases to the pubic symphysis. Coronal and sagittal reformats were performed. For radiation dose reduction, the following was used: automated exposure control, adjustment of mA and/or kV according to patient size. COMPARISON: [facility], CT, CT ANGIO CHEST PE PROTOCOL, 04/07/2024, 11:03. FINDINGS: Image quality: Diagnostic Lower chest: Left lung base focal atelectasis Mild wall thickening at the gastroesophageal junction. Normal heart size. Liver: Subcentimeter lesions are too small to characterize, usually cysts or hemangiomas. Segment 7 lesion with typical characteristics of hemangioma is seen. Gallbladder and biliary system: Gallbladder is unremarkable. Distended CBD at 1 cm. Pancreas: No ductal dilation Spleen: Nonenlarged Adrenals: No discrete nodules Kidneys: No solid mass or hydronephrosis Vessels and lymph nodes: The main portal vein is patent. No abdominal aortic aneurysm. No pathologic lymph nodes by size criteria. Bowel and peritoneum: No evidence of small bowel obstruction. No pathologic ascites. The appendix appears nondilated Body wall: Unremarkable Pelvis: There are prominent pelvic veins. Reproductive organs otherwise unremarkable on limited CT evaluation. Bladder is under distended. Bones: There are degenerative osseous changes. IMPRESSION: Gallbladder appears unremarkable on CT. Distended biliary system again seen, measuring up to 1 cm at the CBD. Consider MRCP or ERCP to further evaluate if there is further clinical concern. Prominent pelvic veins are present, sometimes seen with pelvic congestion syndrome. Mild wall thickening at the gastroesophageal junction, possibly inflammatory, for which endoscopy could further evaluate if necessary. Other findings above. Dictated by: Jaswant Harrington M.D. on 11/13/2024 at 22:52 Approved by: Jaswant Harrington M.D. on 11/13/2024 at 22:57
== END ==
LOC: CT 15:18
PROVIDERS: Family Provider Internal Medicine; PCP Internal Medicine; Referring Provider Internal Medicine; Visit Provider Internal Medicine
DX: Q44.5 Other congenital malformations of bile ducts (principal); D18.03 Hemangioma of intra-abdominal structures; R10.11 Right upper quadrant pain; R11.0 Nausea
CPT/HCPCS: 74177; Q9967

== ENCOUNTER 2024-12-10 10:01 | Emergency (ER) | payer OTHER, SELFPAY ==
[2024-12-10] VITALS (10 sets, daily range): BP systolic 124–147; BP diastolic 58–78; PULSE 65–74; RESP 12–19; TEMP 36.5; O2SAT 97–100; BMI 22.1
--- NOTE | 2024-12-10 10:03 | DI.RAD.S_ITS ---
PROCEDURE: XR CHEST 1V INDICATIONS: chest pain TECHNIQUE: One view of the chest was acquired. COMPARISON: [facility], CR, XR CHEST 2V, 08/20/2022, 16:01. FINDINGS: Surgical changes and devices: None. Lungs and pleura: Lungs are clear. No pleural effusions or pneumothorax. Mediastinum: Mediastinal contours appear normal. Heart size is normal. Bones and chest wall: No suspicious bony lesions. Overlying soft tissues appear unremarkable. IMPRESSION: No acute pulmonary process. Dictated by: Radha Packer M.D. on 12/10/2024 at 10:30 Approved by: Radha Packer M.D. on 12/10/2024 at 10:30
[2024-12-10] MEDS: ASPIRIN 81 MG CHEW TAB 324 MG PO (10:08)
--- NOTE | 2024-12-10 10:13 | EKG_ITS ---
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
[2024-12-10 10:27] LABS: Add Manual Diff / Slide Review NO; Basophils Absolute Auto 0 /uL (0-100); Basophils Percent Auto 0.6 % (0-2); Eosinophils Absolute Auto 100 /uL (0-450); Eosinophils Percent Auto 1.3 % (2-4); Hematocrit 43.6 % (36-46); Hemoglobin 14.6 g/dL (12.0-16.0); Lymphocytes Absolute Auto 1900 /uL (1100-4500); Lymphocytes Percent Auto 25.4 % (25-40); Mean Corpuscular HGB Conc 33.4 % (30-36); Mean Corpuscular Hemoglobin 30.2 PG (26-34); Mean Corpuscular Volume 90.3 fL (80-100); Monocytes Absolute Auto 500 /uL (0-900); Monocytes Percent Auto 6.4 % (3-14); Neutrophils Absolute Auto 4900 /uL (1500-7000); Neutrophils Percent Auto 66.3 % (50-75); Platelet Count 199 X10^3/uL (150-400); Red Blood Cell Count 4.83 X10^6/uL (4.0-5.2); Red Cell Distribution Width 14.4 % (11.6-14.8); White Blood Cell Count 7.3 X10^3/uL (4.5-11.0)
[2024-12-10 10:32] LABS: Prothrombin Time 11.7 SECONDS (9.4-12.5)
[2024-12-10 10:35] LABS: PTT Partial Thromboplastin Tim 38 SECONDS (25.1-36.5)
[2024-12-10 10:37] LABS: Alanine Aminotransferase 20 IU/L (<35); Albumin 4.8 g/dL (3.5-5.0); Albumin Globulin Ratio 1.6 (1.0-2.8); Alkaline Phosphatase 61 U/L (38-126); Aspartate Aminotransferase 31 IU/L (14-36); BUN Creatinine Ratio 17.2 (6-22); Bilirubin Total 1.1 mg/dL (0.2-1.3); Blood Urea Nitrogen 16 mg/dL (7-17); Calcium 9.4 mg/dL (8.4-10.2); Carbon Dioxide 21 mmol/L (22-32); Chloride 101 mmol/L (98-107); Creatine Kinase 66 U/L (30-135); Estimated Glomerular Filt Rate > 60 mL/min (>60); Glucose 81 mg/dL (80-110); HEMOLYSIS < 15 (0-50); Lipase 116 U/L (23-300); Magnesium 1.8 mg/dL (1.6-2.3); Potassium 3.7 mmol/L (3.4-5.1); Sodium 137 mmol/L (137-145); Total Protein 7.8 g/dL (6.3-8.2)
[2024-12-10 10:49] LABS: NT-proBNP (BNP-Adult 18+) 87 pg/mL (<125); Troponin I < 0.012 ng/mL (0.01-0.034)
--- NOTE | 2024-12-10 13:41 | ED_ITS ---
HPI - Chest Pain General Chief Complaint: Chest Pain Stated Complaint: Chest feels heavy Time Seen by Provider: 12/10/24 13:41 Source: patient Mode of arrival: Ambulatory History of Present Illness HPI narrative: Patient 64-year-old female history of PSVT on metoprolol presenting today with chest heaviness. She reports that she has been feeling some heaviness on the left side really nonradiating off and on for the last week. It lasts anywhere from 20 minutes to 3 hours. Has no provocation or palliation. She is like she can not take a deep breath. She does have a history of SVT but this feels a lot different. She tried an exercise stress test 3 years ago but was unable to finish because she went into SVT. She has no family history of coronary artery disease she has a nonsmoker. Related Data Previous Rx's Medication Instructions Recorded meclizine 25 mg tablet 25 mg PO Q8H PRN #100 tabs 03/10/18 amitriptyline 10 mg tablet 0 PO HS #30 tabs 03/11/18 ketorolac 10 mg tablet 10 mg PO Q6H PRN #20 tabs 03/11/18 epinephrine 0.3 mg/0.3 mL 0.3 mg (0.3 mL) IM ONCE PRN 05/27/18 injection, auto-injector (EpiPen anaphylaxis #2 ea 2-Lev) lorazepam 0.5 mg tablet 0.5 mg PO Q8H PRN fear of flying 05/27/18 #15 tabs prednisone 20 mg tablet 20 mg PO DAILY PRN arthralgia #30 09/15/18 tabs montelukast 10 mg tablet 10 mg PO QDAY #30 tabs 11/04/18 (Singulair) Allergies Allergy/AdvReac Type Severity Reaction Status Date / Time Sulfa (Sulfonamide Allergy Severe severe Verified 12/10/24 10:04 Antibiotics) immediate [SULFA (SULFONAMIDE hives ANTIBIOTICS)] rizatriptan Allergy Verified 12/10/24 10:04 Patient History Medical History Retinal tear (2014) Chronic headaches GERD (gastroesophageal reflux disease) Hayfever (196) Vertigo (2014) Surgical History Anesthesia History of excision of mass (2010) Family History Grandmother PSVT (paroxysmal supraventricular tachycardia) Mother Age: 84 Heart disease PSVT (paroxysmal supraventricular tachycardia) Heart palpitations Sister Age: 63 Hypertension Obesity Brother Prediabetes Father Melanoma Grandfather No problems noted. Grandfather No problems noted. Grandmother No problems noted. Social History Smoking Status: Never smoker alcohol intake: never substance use type: does not use Smoking Status: Never smoker alcohol intake frequency: holidays/special occasions only Exam Initial Vital Signs Initial Vital Signs: Vital Signs Temperature 97.7 F 12/10/24 10:04 Pulse Rate 74 12/10/24 10:04 Respiratory Rate 14 12/10/24 10:04 Blood Pressure 133/75 12/10/24 10:04 Pulse Oximetry 99 12/10/24 10:04 Oxygen Delivery Method Room Air 12/10/24 10:04 GENERAL: Alert pleasant 64-year-old female and in no acute distress. HEENT: Head atraumatic,EOMI, pupils reactive, face symmetric, moist mucous membranes CARDIOVASCULAR: Regular rate and rhythm without murmurs, rubs or gallops. Pain is not reproducible RESPIRATORY: Breath sounds equal bilaterally, no wheezes rales or rhonchi. ABDOMEN: Soft, nontender. Normoactive bowel sounds all 4 quadrants. No guarding or rebound. EXTREMITIES: Normal range of motion, no clubbing or edema. Neurovascularly intact NEUROLOGICAL: Alert and oriented x4.Normal gait and speech. Cranial nerves II through XII grossly intact. SKIN: Warm, dry, no laceration, no petechiae, no rashes or lesions. Scores HEART Score Heart Score history: Moderately Suspicious Heart Score EKG: Normal Heart Score Age: 45-64 years old Heart Score risk factors: No known risk factors Heart Score troponin: < or = to normal limit Heart Score Total: 2 Course Orders Ordered: ED Orders 12/10/24 10:15 Complete Blood Count AUTO DIFF Stat Comprehensive Metabolic Panel Stat Lipase Stat Magnesium Stat NT-proBNP (BNP-Adult 18+) Stat PTT Partial Thromboplastin Emiliano Stat Prothrombin Time INR Stat Troponin & CK Cardiac Panel Stat 12/10/24 14:00 Trop I [Troponin I] Stat EKG-12 Lead Stat Discontinued Medications Aspirin (Aspirin 81 Mg Chew Tab) 324 mg PO NOW ONE Stop: 12/10/24 10:04 Last Admin: 12/10/24 10:08 Dose: 324 mg Documented By: LILA Vital Signs Vital signs: Vital Signs - 8 hr 12/10/24 11:30 12/10/24 11:30 12/10/24 12:00 Pulse Rate 68 70 Respiratory Rate 17 17 Blood Pressure 124/69 Pulse Oximetry 98 100 Oxygen Delivery Method 12/10/24 12:00 12/10/24 12:30 12/10/24 12:30 Pulse Rate 71 Respiratory Rate 19 Blood Pressure 134/71 126/70 Pulse Oximetry 99 Oxygen Delivery Method Room Air 12/10/24 13:00 12/10/24 13:00 12/10/24 14:00 Pulse Rate 67 Respiratory Rate 17 Blood Pressure 130/70 134/78 Pulse Oximetry 99 Oxygen Delivery Method 12/10/24 14:00 12/10/24 14:30 12/10/24 14:30 Pulse Rate 69 66 Respiratory Rate 19 12 Blood Pressure 136/58 L Pulse Oximetry 97 97 Oxygen Delivery Method Room Air MDM - Chest Pain Lab Data 12/10/24 10:15 12/10/24 10:15 Labs: Lab Results 12/10/24 12/10/24 Range/Units 10:15 14:00 WBC 7.3 (4.5-11.0) X10^3/uL RBC 4.83 (4.0-5.2) X10^6/uL Hgb 14.6 (12.0-16.0) g/dL Hct 43.6 (36-46) % MCV 90.3 (80-100) fL MCH 30.2 (26-34) PG MCHC 33.4 (30-36) % RDW 14.4 (11.6-14.8) % Plt Count 199 (150-400) X10^3/uL Neut % (Auto) 66.3 (50-75) % Lymph % (Auto) 25.4 (25-40) % [place] % (Auto) 6.4 (3-14) % Eos % (Auto) 1.3 L (2-4) % Baso % (Auto) 0.6 (0-2) % Neut # (Auto) 4900 (2093-2065) /uL Lymph # (Auto) 1900 (4571-1048) /uL [place] # (Auto) 500 (0-900) /uL Eos # (Auto) 100 (0-450) /uL Baso # (Auto) 0 (0-100) /uL PT 11.7 (9.4-12.5) SECONDS INR 1.0 (0.9-1.3) APTT 38 H (25.1-36.5) SECONDS Sodium 137 (137-145) mmol/L Potassium 3.7 (3.4-5.1) mmol/L Chloride 101 (98-107) mmol/L Carbon Dioxide 21 L (22-32) mmol/L BUN 16 (7-17) mg/dL Creatinine 0.93 (0.52-1.04) mg/dL Estimated GFR > 60 (>60) mL/min BUN/Creatinine Ratio 17.2 (6-22) Glucose 81 (80-110) mg/dL Calcium 9.4 (8.4-10.2) mg/dL Magnesium 1.8 (1.6-2.3) mg/dL Total Bilirubin 1.1 (0.2-1.3) mg/dL AST 31 (14-36) IU/L ALT 20 (<35) IU/L Alkaline Phosphatase 61 (38-126) U/L Total Creatine Kinase 66 (30-135) U/L Troponin I < 0.012 < 0.012 (0.01-0.034) ng/mL NT-Pro-B Natriuret Pep 87 (<125) pg/mL Total Protein 7.8 (6.3-8.2) g/dL Albumin 4.8 (3.5-5.0) g/dL Globulin 3.0 (1.7-4.1) g/dL Albumin/Globulin Ratio 1.6 (1.0-2.8) Lipase 116 (23-300) U/L Imaging Data Chest x-ray: Radiologist's Impression: PROCEDURE: XR CHEST 1V INDICATIONS: chest pain TECHNIQUE: One view of the chest was acquired. COMPARISON: [facility], CR, XR CHEST 2V, 08/20/2022, 16:01. FINDINGS: Surgical changes and devices: None. Lungs and pleura: Lungs are clear. No pleural effusions or pneumothorax. Mediastinum: Mediastinal contours appear normal. Heart size is normal. Bones and chest wall: No suspicious bony lesions. Overlying soft tissues appear unremarkable. IMPRESSION: No acute pulmonary process. Dictated by: Radha Packer M.D. on 12/10/2024 at 10:30 ECG Data Attestation: I personally reviewed and interpreted this ECG as follows: Prior ECG tracings: available for review Interpretation: Normal sinus rhythm rate 64 [place] interval 154 QRS [address] changes or T- wave inversions MDM Narrative Medical decision making narrative: Patient is 64-year-old female history of SVT presenting today with chest heaviness. It is atypical chest pain. She has a heart score of 2. Workup in the emergency department is overall reassuring she has a negative troponin. Other blood work has been reviewed no clinical significant abnormality Chest x-ray has been reviewed no acute cardiopulmonary process 1400 Dr. Roach recommends admission for nuclear stress test Dr. Rodríguez updated on symptoms aware of cardiology results. After discussion with Dr. Rodríguez and patient given option to stay in the hospital for stress test however she would like to go home. Outpatient stress test is placed as stat by Dr. Rodríguez. Strict return precautions given to patient. She understands she needs more testing done she understands to return if symptoms worsen Discharge Plan Departure Patient Disposition: Home Clinical Impression: Atypical chest pain Instructions: DI for Atypical Chest Pain Activity Restrictions/Additional Instructions: *You have been diagnosed with atypical chest pain *What to do: At this time you do need a nuclear stress test. I have called and spoken to Dr. Rodríguez, who has put in a stat test. This will still take time to schedule. If in the meantime you should have any worsening chest pain heaviness sweating shortness of breath you must return to the ER immediately *Continue to take medications as directed Aspirin 81 mg daily *Follow up with your primary care provider in 2-3 days or call [phone] *Return to ER if you should have chest pain sweating heaviness palpitations dizziness shortness of or any new, worsening or concerning symptoms Prescriptions: No Action meclizine 25 MG tablet 25 mg PO Q8H PRNQty: 100 0RF ketorolac 10 MG tablet 10 mg PO Q6H PRNQty: 20 0RF amitriptyline 10 MG tablet 0 PO HS Qty: 30 1RF lorazepam 0.5 mg tablet 0.5 mg PO Q8H PRN (Reason: fear of flying) Qty: 15 0RF Rx Instructions: Take 1/2-1 prior to flying as needed epinephrine [EpiPen 2-Lev] 0.3 mg/0.3 mL auto-injector 0.3 mg IM ONCE PRN (Reason: anaphylaxis) Qty: 2 0RF prednisone 20 mg tablet 20 mg PO DAILY PRN (Reason: arthralgia) Qty: 30 0RF Rx Instructions: administer with food or milk, do not take with NSAIDS. montelukast [Singulair] 10 mg tablet 10 mg PO QDAY Qty: 30 2RF Referrals: Marisa Payton ARNP [Primary Care Provider] - Stand Alone Forms: Patient Portal/API/Survey
--- NOTE | 2024-12-10 14:09 | EKG_ITS ---
[address] [address] Test Date: 2024-12-10 Pat Name: Delicia Bautista Department: 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
[2024-12-10 14:32] LABS: Troponin I < 0.012 ng/mL (0.01-0.034)
== END 2024-12-10 15:04 | disposition home or self-care (01) ==
PROVIDERS: Emergency Provider Emergency Medicine; Family Provider Internal Medicine; PCP Internal Medicine
DX: R07.89 Other chest pain (principal)
CPT/HCPCS: 36415; 71045; 80053; 82550; 83690; 83735; 83880; 84484; 85025; 85610; 85730; 93005; 93010; 99284

== ENCOUNTER → 2024-12-15 07:49 | Outpatient (CLI) | payer OTHER, SELFPAY ==
--- NOTE | 2024-12-15 07:50 | DI.NM.S_ITS ---
PROCEDURE: NM EXERCISE TREADMILL NON NUC COMPARISON: None. INDICATIONS: PALPITATIONS/PSVT/ACUTE CHEST PAIN FINDINGS: The patient exercised for 7 minutes and 30 seconds reaching 99% of maximum predicted heart rate. 10.1METs, DARIAN -15%. Appropriate BP response to exercise. Mild horizontal to downsloping ST depressions in the inferior and anterolateral leads with exercise and recovery. Brief 3-4 beat runs of atrial tachycardia during exercise and recovery. Patient had chest discomfort 6 minutes into exercise that did not inhibit her ability to continue with stress test. IMPRESSION: Abnormal treadmill ECG only stress test with chest pain with exercise that is concerning for angina and ST depressions during exercise and recovery. Recommend expedited follow up with cardiology. Dictated by: Jeremiah Mendez MD on 12/16/2024 at 13:42 Approved by: Jeremiah Mendez MD on 12/16/2024 at 13:48
== END ==
PROVIDERS: Family Provider Internal Medicine; PCP Registered Nurse; Referring Provider Registered Nurse; Visit Provider Registered Nurse
DX: I47.10 Supraventricular tachycardia, unspecified (principal); R07.9 Chest pain, unspecified; R00.2 Palpitations; R94.39 Abnormal result of other cardiovascular function study
CPT/HCPCS: 93017